=== PATIENT | female | born 1930 | race Caucasian/White ===

== ENCOUNTER 2016-04-26 21:58 | Emergency (ER) | payer MEDICARE, OTHER ==
--- NOTE | 2016-04-26 22:26 | ERPHSYRPT ---
- History of Present Illness Time Seen by Provider: 04/26/16 22:10 Source: patient Exam Limitations: no limitations Patient Subjective Stated Complaint: pt states for since sunday she has been having chest pain and fullness in the lt side of her chest radiating to lt shoulder and arm Triage Nursing Assessment: pt alert and oriented. answers questions approp. pt ambulated from wheelchair to stretcher, steady gait noted. respirations nonlabored. no sob noted while pt lying in bed. lungs cta. +2 edema noted to bilat lower ext. pt states is unchanged from her useal. Physician History: FOR THE PAST 4 DAYS PT HAS HAD CONSTANT CHEST AND LEFT ARM FULLNESS WITH DYSPNEA ON EXERTION; DENIES NAUSEA, VOMITING, DIAPHORESIS, CHEST PAIN, FEVER, CHILLS, ABDOMINAL PAIN. Allergies/Adverse Reactions: Penicillins Allergy (Severe, Verified 04/26/16 22:22) chest pain, sob, tongue swelling cortisone [Cortisone] Allergy (Mild, Verified 04/26/16 22:22) aggrivates ulcer promethazine HCl [From Phenergan] Allergy (Mild, Verified 04/26/16 22:22) hives, itching Home Medications: Aspirin 81 mg PO DAILY 08/11/11 [History] Diltiazem HCl 180 mg [Cardizem CD 180 MG] 180 mg PO DAILY 08/11/11 [History] Furosemide 1 tab PO DAILY 08/11/11 [History] Levothyroxine Sodium 75 Mcg [Synthroid 75 Mcg] 75 mcg PO DAILY 08/11/11 [ History] Multivitamin with Minerals [Multivitamins with Minerals] 1 tab PO UD 08/11/11 [ History] [place]-3 Fatty Acids/Fish Oil [Fish Oil 1,000 mg Capsule] 1 tab PO UD 08/11/11 [History] PANTOPRAZOLE 40 mg Tablet [Protonix 40MG Tablet] 40 mg PO DAILY 08/11/11 [ History] Potassium Chloride 10 Meq Tab* [Klor Con 10MEQ] 10 meq PO DAILY 08/11/11 [ History] Hx Influenza Vaccination/Date Given: Yes Hx Pneumococcal Vaccination/Date Given: Yes (2007) - Review of Systems Constitutional: No Fever Ears, Nose, & Throat: No Ear Pain, No Throat Pain Respiratory: Dyspnea on Exertion (BUSBY) Cardiac: Other (CHEST FULLNESS) Abdominal/Gastrointestinal: No Abdominal Pain, No Nausea, No Vomiting, No Diarrhea Neurological: No Headache Endocrine: No Excessive Sweating All Other Systems: Reviewed and Negative - Past Medical History Pertinent Past Medical History: Yes Neurological History: Peripheral Neuropathy, Stroke, TIA ENT History: No Pertinent History Cardiac History: Angina, Arrhythmia, Hypertension, Other Respiratory History: No Pertinent History Endocrine Medical History: Hypothyroidism Musculoskeletal History: No Pertinent History GI Medical History: Colitis, Colorectal Cancer, Diverticulitis, GERD, GI Bleed, Hemorrhoids History: No Pertinent History Psycho-Social History: No Pertinent History Female Reproductive Disorders: No Pertinent History Other Medical History: leaky heart valve - Past Surgical History Past Surgical History: Yes Neuro Surgical History: No Pertinent History Cardiac: Vascular Surgery Respiratory: No Pertinent History Gastrointestinal: Colon Resection Genitourinary: No Pertinent History Musculoskeletal: Orthopedic Surgery Female Surgical History: Hysterectomy, Other Other Surgical History: rt hand surgery,tubal pregnacy, pt unsure about vascular surgery? - Social History Smoking Status: Never smoker Exposure to second hand smoke: No Drug Use: none Patient Lives Alone: No - Female History Hx Last Menstrual Period: post - Nursing Vital Signs Nursing Vital Signs: Initial Vital Signs Temperature 97.4 F Temperature Source Oral Pulse Rate [] 71 Pulse Rate 59 Respiratory Rate 13 Blood Pressure [] 152/74 Pain Intensity 3 - Physical Exam General Appearance: no apparent distress, alert Eye Exam: PERRL/EOMI Ears, Nose, Throat Exam: TMs normal, pharynx normal, moist mucous membranes Neck Exam: normal inspection Respiratory Exam: lungs clear Cardiovascular Exam: normal heart sounds Gastrointestinal/Abdomen Exam: soft, normal bowel sounds Back Exam: normal range of motion Extremity Exam: normal inspection, No pedal edema Neurologic Exam: alert, cooperative Skin Exam: warm, dry SpO2 Interpretation: normal SpO2: 98 Oxygen Delivery: Room Air - Course Nursing assessment & vital signs reviewed: Yes EKG Interpreted by Me: RATE (74), Sinus Rhythm, NORMAL AXIS, NORMAL QRS - Radiology Exams Chest X-ray Interpretation: Interpreted by me, No Pneumonia Ordered Tests: Active Orders 24 hr Category Date Time Status Photographic Process Attendant STAT Care 04/26/16 22:18 Active EKG-ER Only STAT Care 04/26/16 22:18 Active IV Insertion STAT Care 04/26/16 22:18 Active Oxygen-ED Only NASAL CANNULA 2 lpm Care 04/26/16 22:18 Active CHEST 1 VIEW (PORTABLE) Stat Exams 04/26/16 22:19 Taken AMYLASE Stat Lab 04/26/16 22:00 Completed CBC W DIFF Stat Lab 04/26/16 22:00 Completed CMP Stat Lab 04/26/16 22:00 Completed LIPASE Stat Lab 04/26/16 22:00 Completed MAGNESIUM Stat Lab 04/26/16 22:00 Completed NT PRO BNP Stat Lab 04/26/16 22:00 Completed PROTIME WITH INR Stat Lab 04/26/16 22:00 Completed PTT Stat Lab 04/26/16 22:00 Completed TROPONIN Q3H Lab 04/26/16 22:00 Completed TROPONIN Q3H Lab 04/27/16 01:30 Ordered TROPONIN Q3H Lab 04/27/16 04:30 Ordered TROPONIN Q3H Lab 04/27/16 07:30 Ordered TROPONIN Q3H Lab 04/27/16 10:30 Ordered UA W/ MICROSCOPIC Stat Lab 04/26/16 23:09 Completed Medication Summary Generic Name Dose Route Start Last Admin Trade Name Freq PRN Reason Stop Dose Admin Magnesium Oxide 400 mg 04/27/16 10:00 Mag-Ox 400 PO 05/27/16 09:59 BID ZAHIDA Potassium Chloride 40 meq 04/27/16 10:00 Potassium Chl 40 Meq/30 Ml Oral Solution PO 05/27/16 09:59 DAILY ZAHIDA Lab/Rad Data: Laboratory Result Diagrams 04/26/16 22:00 04/26/16 22:00 Laboratory Results 04/26/16 04/26/16 04/26/16 Range/Units 23:09 22:00 22:00 WBC (4.0-10.5) K/mm3 RBC (4.1-5.4) M/mm3 Hgb (12.0-16.0) gm/dl Hct (35-47) % MCV (78-100) fl MCH (26-32) pg MCHC (32-36) g/dl RDW (11.5-14.0) % Plt Count (150-450) K/mm3 MPV (6-9.5) fl Gran % (36.0-66.0) % Lymphocytes % (24.0-44.0) % Monocytes % (0.0-12.0) % Eosinophils % (0.00-5.0) % Basophils % (0.0-0.4) % Basophils # (0-0.4) INR 0.97 (0.8-3.0) PTT 32.8 (25.3-37.0) SECONDS Sodium (136-145) mEq/L Potassium (3.5-5.1) mEq/L Chloride (98-107) mEq/L Carbon Dioxide (21-32) mEq/L Anion Gap (5-15) MEQ/L BUN (9-20) mg/dL Creatinine (0.55-1.30) mg/dl Estimated GFR ML/MIN Glucose (70-110) MG/DL Calcium (8.5-10.1) mg/dL Magnesium (1.8-2.4) mg/dL Total Bilirubin (0.2-1.0) mg/dL AST (15-37) U/L ALT (12-78) U/L Alkaline Phosphatase (46-116) U/L Troponin I < 0.017 (0.000-0.056) ng/ml NT-Pro-B Natriuret Pep (0-450) pg/ml Serum Total Protein (6.4-8.2) gm/dL Albumin (3.4-5.0) g/dL Amylase (25-115) U/L Lipase (73-393) U/L Ur Collection Type CLEAN CATCH Urine Color YELLOW (YELLOW) Urine Appearance CLEAR (CLEAR) Urine pH 5.5 (5-6) Ur Specific [place] <=1.005 (1.005-1.025) Urine Protein NEGATIVE (Negative) Urine Glucose (UA) NEGATIVE (NEGATIVE) mg/dL Urine Ketones NEGATIVE (NEGATIVE) Urine Nitrite NEGATIVE (NEGATIVE) Urine Bilirubin NEGATIVE (NEGATIVE) Urine Urobilinogen 0.2 (0-1) mg/dL Urine WBC (Auto) SMALL (NEGATIVE) Urine RBC (Auto) NEGATIVE (0-5) Gabriele/ul Urine Microscopic RBC 0-2 (0-2) /HPF Urine Microscopic WBC 2-5 (0-5) /HPF Ur Epithelial Cells RARE (FEW) /HPF Urine Bacteria RARE (NEGATIVE) /HPF Specimen Received 04/26/16 2310 04/26/16 04/26/16 Range/Units 22:00 22:00 WBC 7.5 (4.0-10.5) K/mm3 RBC 4.60 (4.1-5.4) M/mm3 Hgb 13.3 (12.0-16.0) gm/dl Hct 40.9 (35-47) % MCV 88.9 (78-100) fl MCH 28.9 (26-32) pg MCHC 32.5 (32-36) g/dl RDW 13.8 (11.5-14.0) % Plt Count 368 (150-450) K/mm3 MPV 9.1 (6-9.5) fl Gran % 42.8 (36.0-66.0) % Lymphocytes % 46.0 H (24.0-44.0) % Monocytes % 8.7 (0.0-12.0) % Eosinophils % 2.0 (0.00-5.0) % Basophils % 0.5 (0.0-0.4) % Basophils # 0.04 (0-0.4) INR (0.8-3.0) PTT (25.3-37.0) SECONDS Sodium 140 (136-145) mEq/L Potassium 3.3 L (3.5-5.1) mEq/L Chloride 103 (98-107) mEq/L Carbon Dioxide 31.8 (21-32) mEq/L Anion Gap 8.6 (5-15) MEQ/L BUN 17 (9-20) mg/dL Creatinine 0.88 (0.55-1.30) mg/dl Estimated GFR > 60 ML/MIN Glucose 97 (70-110) MG/DL Calcium 10.0 (8.5-10.1) mg/dL Magnesium 1.7 L (1.8-2.4) mg/dL Total Bilirubin 0.3 (0.2-1.0) mg/dL AST 16 (15-37) U/L ALT 14 (12-78) U/L Alkaline Phosphatase 113 (46-116) U/L Troponin I (0.000-0.056) ng/ml NT-Pro-B Natriuret Pep 152 (0-450) pg/ml Serum Total Protein 7.0 (6.4-8.2) gm/dL Albumin 3.4 (3.4-5.0) g/dL Amylase 43 (25-115) U/L Lipase 183 (73-393) U/L Ur Collection Type Urine Color (YELLOW) Urine Appearance (CLEAR) Urine pH (5-6) Ur Specific [place] (1.005-1.025) Urine Protein (Negative) Urine Glucose (UA) (NEGATIVE) mg/dL Urine Ketones (NEGATIVE) Urine Nitrite (NEGATIVE) Urine Bilirubin (NEGATIVE) Urine Urobilinogen (0-1) mg/dL Urine WBC (Auto) (NEGATIVE) Urine RBC (Auto) (0-5) Gabriele/ul Urine Microscopic RBC (0-2) /HPF Urine Microscopic WBC (0-5) /HPF Ur Epithelial Cells (FEW) /HPF Urine Bacteria (NEGATIVE) /HPF Specimen Received - Departure Time of Disposition: 23:23 Departure Disposition: Home Clinical Impression: BUSBY, HYPOKALEMIA, HYPOMAGNESEMIA Condition: Fair Critical Care Time: No Referrals: CALEB HAYNES [Primary Care Provider] - Instructions: Shortness of Breath Additional Instructions: FOLLOW UP WITH PRIVATE DOCTOR TOMORROW.
[2016-04-26 22:29] LABS: BASOPHIL % 0.5 % (0.0-0.4); Granulocytes % 42.8 % (36.0-66.0); Mean Cell Volume 88.9 fl (78-100); Mean Corpuscular Hemoglobin 28.9 pg (26-32); Mean Platelet Volume 9.1 fl (6-9.5); Monocytes % 8.7 % (0.0-12.0); Platelet Count 368 K/mm3 (150-450); Red Cell Distribution Width 13.8 % (11.5-14.0); White Blood Count 7.5 K/mm3 (4.0-10.5)
[2016-04-26 22:49] LABS: INR 0.97 (0.8-3.0); PROTIME 10.9 SECONDS (9.95-12.35)
[2016-04-26 22:52] LABS: PTT 32.8 SECONDS (25.3-37.0)
[2016-04-26 23:01] LABS: ALBUMIN 3.4 g/dL (3.4-5.0); ALKALINE PHOSPHATASE 113 U/L (46-116); ANION GAP 8.6 MEQ/L (5-15); BILIRUBIN,TOTAL 0.3 mg/dL (0.2-1.0); BLOOD UREA NITROGEN 17 mg/dL (9-20); CHLORIDE 103 mEq/L (98-107); Carbon Dioxide 31.8 mEq/L (21-32); Glucose 97 MG/DL (70-110); LIPASE 183 U/L (73-393); MAGNESIUM 1.7 mg/dL (1.8-2.4); Potassium 3.3 mEq/L (3.5-5.1); SGOT/AST 16 U/L (15-37); SGPT/ALT 14 U/L (12-78); SODIUM 140 mEq/L (136-145)
[2016-04-26 23:13] VITALS: O2SAT 98
[2016-04-26 23:21] LABS: Collection Type CLEAN CATCH
[2016-04-26 23:22] LABS: Bacteria RARE /HPF (NEGATIVE); COMPLETE URINE MICROSCOPIC? YES; Epithelial Cells RARE /HPF (FEW); Ph 5.5 (5-6)
[2016-04-26] MEDS ORDERED: MAG-OX 400 ONE (23:25)
[2016-04-26] MEDS ORDERED: POTASSIUM CHL 40 MEQ/30 ML ORAL SOLUTION ONE (23:25)
[2016-04-27 00:39] VITALS: BP 156/102; PULSE 78
--- NOTE | 2016-04-27 09:10 | XRAY ---
Indication: Chest congestion. Comparison: September 19, 2012. Portable chest slightly less inflated today again with left base fibrosis/scarring. Remaining lungs clear. Heart is not enlarged. Vascularity normal. Bony thorax intact again with mild osteopenia, degenerative changes, and double curvature scoliosis. Impression: Nonacute chest again with chronic features.
[2016-04-27] MEDS ORDERED: MAG-OX 400 PO SCH (10:00)
[2016-04-27] MEDS ORDERED: POTASSIUM CHL 40 MEQ/30 ML ORAL SOLUTION PO SCH (10:00)
== END 2016-04-27 00:40 | disposition home or self-care (01) ==
LOC: ED 21:58
DX: R06.00 Dyspnea, unspecified (principal); E87.6 Hypokalemia; E83.42 Hypomagnesemia; R07.89 Other chest pain
CPT/HCPCS: 93041; 99285; 36000; 93005; 82150; 81000; 85610; 85730; 36415; 83690; 83880; 83735; 85025; 80053; 84484; 71010; A9270; 99283; 99284

== ENCOUNTER 2016-04-28 11:30 | Observation (INO) | payer MEDICARE, OTHER ==
[2016-04-28] MEDS ORDERED: Pepcid 20 MG VIAL IV ONE ×2 (11:43→12:02)
[2016-04-28] MEDS ORDERED: NITRO-BID 2% UD PACKETS TOP ONE (11:43)
[2016-04-28] MEDS ORDERED: BABY ASPIRIN 81 MG CHEW PO ONE (11:43)
--- NOTE | 2016-04-28 11:49 | ERPHSYRPT ---
- History of Present Illness Time Seen by Provider: 04/28/16 11:36 Historian: patient, family Patient Subjective Stated Complaint: PT STATES SHE WAS RECENLTY HERE ON SUNDAY STATES THAT HER POTASSIUM AND MAGNESIUM WERE LOW STATES THAT. SHE WAS HAVING LEFT ARM PAIN THEN STATES THAT SHE IS HAVING LEFT SIDE CHEST PAIN RADIATES INTO HER BACK STATES SHE DOES GET SOB WHEN SHE WALKS STATES THAT SHE DID TAKE A NITRO AND THE PAIN "LET UP" STATES STERILIZER MACHINE OPERATOR LUZ MARIA Triage Nursing Assessment: PT ALERT WARM AND DRY RESP EASY NON LABORED PT AMBULATED TO ROOM WITHOUT DIFFICULTY. Physician History: CC: chest pain Hx: 85 y/o patient with chest pain radiating around to her back. Was off and on , now constant. Started last week. Now worse. She has BUSBY. She was in ER this week and has low K. She has no hx of heart disease, but had prior stroke. She took a NTG at home with some brief improvement. She formerly saw Dr Hassan but was planning to see Dr Daryl Cha closer to home. No prior plate and frame filter operator, but has made appt with Dr Restrepo. Pain is squeezing and pressure. Timing/Duration: week(s) (1) Severity of Pain-Max: moderate Severity of Pain-Current: moderate Aspirin Treatment Today: 81 mg x 2, provided by ED Allergies/Adverse Reactions: Penicillins Allergy (Severe, Verified 04/26/16 22:22) chest pain, sob, tongue swelling cortisone [Cortisone] Allergy (Mild, Verified 04/26/16 22:22) aggrivates ulcer promethazine HCl [From Phenergan] Allergy (Mild, Verified 04/26/16 22:22) hives, itching Home Medications: Aspirin 81 mg PO DAILY 08/11/11 [History] Diltiazem HCl 180 mg [Cardizem CD 180 MG] 180 mg PO DAILY 08/11/11 [History] Furosemide 1 tab PO DAILY 08/11/11 [History] Levothyroxine Sodium 75 Mcg [Synthroid 75 Mcg] 75 mcg PO DAILY 08/11/11 [ History] Multivitamin with Minerals [Multivitamins with Minerals] 1 tab PO UD 08/11/11 [ History] [place]-3 Fatty Acids/Fish Oil [Fish Oil 1,000 mg Capsule] 1 tab PO UD 08/11/11 [History] PANTOPRAZOLE 40 mg Tablet [Protonix 40MG Tablet] 40 mg PO DAILY 08/11/11 [ History] Potassium Chloride 10 Meq Tab* [Klor Con 10MEQ] 10 meq PO DAILY 08/11/11 [ History] Hx Tetanus, Diphtheria Vaccination/Date Given: No Hx Influenza Vaccination/Date Given: Yes Hx Pneumococcal Vaccination/Date Given: No Immunizations Up to Date: Yes - Review of Systems Constitutional: Malaise, Weakness, No Fever, No Chills Eyes: No Symptoms Ears, Nose, & Throat: No Symptoms Respiratory: Dyspnea on Exertion (BUSBY), No Cough Cardiac: Chest Pain, Edema Abdominal/Gastrointestinal: No Abdominal Pain, No Nausea, No Vomiting, No Diarrhea Genitourinary Symptoms: No Dysuria Musculoskeletal: Back Pain Skin: No Rash Neurological: No Headache All Other Systems: Reviewed and Negative - Past Medical History Pertinent Past Medical History: Yes Neurological History: Peripheral Neuropathy, Stroke, TIA ENT History: No Pertinent History Cardiac History: Angina, Arrhythmia, Hypertension, Other Respiratory History: No Pertinent History Endocrine Medical History: Hypothyroidism Musculoskeletal History: No Pertinent History GI Medical History: Colitis, Colorectal Cancer, Diverticulitis, GERD, GI Bleed, Hemorrhoids History: No Pertinent History Psycho-Social History: No Pertinent History Female Reproductive Disorders: No Pertinent History Other Medical History: leaky heart valve - Past Surgical History Past Surgical History: Yes Neuro Surgical History: No Pertinent History Cardiac: Vascular Surgery Respiratory: No Pertinent History Gastrointestinal: Colon Resection Genitourinary: No Pertinent History Musculoskeletal: Orthopedic Surgery Female Surgical History: Hysterectomy, Other Other Surgical History: rt hand surgery,tubal pregnacy, pt unsure about vascular surgery? 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) - Female History Hx Last Menstrual Period: N/A - Nursing Vital Signs Temperature: 97.7 F Temperature Source: Oral Pulse Rate: 63 Respiratory Rate: 18 Pain Intensity: 5 - Physical Exam General Appearance: alert, other (pleasant lady) Eye Exam: PERRL/EOMI Ears, Nose, Throat Exam: normal ENT inspection, moist mucous membranes Neck Exam: normal inspection, non-tender, supple Respiratory Exam: normal breath sounds, lungs clear Cardiovascular Exam: regular rate/rhythm, edema Gastrointestinal/Abdomen Exam: soft, No tenderness, No distention, No mass, No guarding Back Exam: normal inspection, normal range of motion Extremity Exam: normal inspection, normal range of motion Neurologic Exam: alert, oriented x 3, cooperative, sensation nml, No motor deficits Skin Exam: warm, dry, No rash SpO2 Interpretation: normal SpO2: 99 Oxygen Delivery: Room Air - Course Nursing assessment & vital signs reviewed: Yes EKG Interpreted by Me: RATE (69), Sinus Rhythm, NORMAL AXIS, NORMAL INTERVALS ( QTc 415), NORMAL QRS, NORMAL ST-T - Radiology Exams cxr X-ray Interpretation: Discussed w/ radiologist, Negative Ordered Tests: Active Orders 24 hr Category Date Time Status Embossing Press Operator STAT Care 04/28/16 11:43 Active EKG-ER Only STAT Care 04/28/16 11:43 Active IV Insertion STAT Care 04/28/16 11:43 Active Pulse Oximetry (ED) STAT Care 04/28/16 11:43 Active CHEST 1 VIEW (PORTABLE) Stat Exams 04/28/16 11:44 Completed CBC W DIFF Stat Lab 04/28/16 11:55 Completed CMP Stat Lab 04/28/16 11:55 Completed MAGNESIUM Stat Lab 04/28/16 11:55 Completed NT PRO BNP Stat Lab 04/28/16 11:55 Completed PROTIME WITH INR Stat Lab 04/28/16 11:55 Completed PTT Stat Lab 04/28/16 11:55 Completed TROPONIN Q3H Lab 04/28/16 14:45 Ordered TROPONIN Q3H Lab 04/28/16 17:45 Ordered TROPONIN Q3H Lab 04/28/16 20:45 Ordered TROPONIN Q3H Lab 04/28/16 23:45 Ordered TROPONIN Stat Lab 04/28/16 11:55 Completed Medication Summary Discontinued Medications Generic Name Dose Route Start Last Admin Trade Name Freq PRN Reason Stop Dose Admin Aspirin 162 mg 04/28/16 11:43 04/28/16 12:07 Baby Aspirin 81 Mg Chew PO 04/28/16 11:44 162 mg STAT ONE Administration Aspirin Confirm 04/28/16 12:01 Baby Aspirin 81 Mg Chew Administered 04/28/16 12:02 Dose 162 mg .ROUTE .STK-MED ONE Famotidine 20 mg 04/28/16 11:43 04/28/16 12:08 Pepcid 20 Mg Vial IV 04/28/16 11:44 20 mg STAT ONE Administration Famotidine Confirm 04/28/16 12:02 Pepcid 20 Mg Vial Administered 04/28/16 12:03 Dose 20 mg IV .STK-MED ONE Nitroglycerin 1 gm 04/28/16 11:43 04/28/16 12:07 Nitro-Bid 2% Ud Packets TOP 04/28/16 11:44 1 gm STAT ONE Administration Nitroglycerin Confirm 04/28/16 12:02 Nitro-Bid 2% Ud Packets Administered 04/28/16 12:03 Dose 1 gm .ROUTE .STK-MED ONE Lab/Rad Data: Laboratory Result Diagrams 04/28/16 11:55 04/28/16 11:55 Laboratory Results 04/28/16 04/28/16 04/28/16 Range/Units 11:55 11:55 11:55 WBC 7.5 (4.0-10.5) K/mm3 RBC 4.78 (4.1-5.4) M/mm3 Hgb 13.6 (12.0-16.0) gm/dl Hct 42.7 (35-47) % MCV 89.3 (78-100) fl MCH 28.5 (26-32) pg MCHC 31.9 L (32-36) g/dl RDW 14.0 (11.5-14.0) % Plt Count 372 (150-450) K/mm3 MPV 9.2 (6-9.5) fl Gran % 64.7 (36.0-66.0) % Lymphocytes % 26.5 (24.0-44.0) % Monocytes % 6.8 (0.0-12.0) % Eosinophils % 1.3 (0.00-5.0) % Basophils % 0.7 (0.0-0.4) % Basophils # 0.05 (0-0.4) INR 0.99 (0.8-3.0) PTT 29.6 (25.3-37.0) SECONDS Sodium 140 (136-145) mEq/L Potassium 4.1 (3.5-5.1) mEq/L Chloride 103 (98-107) mEq/L Carbon Dioxide 27.9 (21-32) mEq/L Anion Gap 12.8 (5-15) MEQ/L BUN 14 (9-20) mg/dL Creatinine 0.75 (0.55-1.30) mg/dl Estimated GFR > 60 ML/MIN Glucose 98 (70-110) MG/DL Calcium 9.9 (8.5-10.1) mg/dL Magnesium 1.9 (1.8-2.4) mg/dL Total Bilirubin 0.3 (0.2-1.0) mg/dL AST 20 (15-37) U/L ALT 17 (12-78) U/L Alkaline Phosphatase 110 (46-116) U/L Troponin I < 0.017 (0.000-0.056) ng/ml NT-Pro-B Natriuret Pep 179 (0-450) pg/ml Serum Total Protein 7.3 (6.4-8.2) gm/dL Albumin 4.0 (3.4-5.0) g/dL - Progress Progress Note: 04/28/16 13:46 Pain improved with NTG paste. She requests Dr Restrepo and Dr Cha. Called Dr Restrepo who advised obs here for rule out CT. Called Dr Daryl Cha who agrees. Will see patient in: hospital (observation) Counseled pt/family regarding: lab results, diagnosis, need for follow-up, rad results - Departure Time of Disposition: 13:47 Departure Disposition: Home Clinical Impression: Chest pain, rule out acute myocardial infarction Condition: Fair Critical Care Time: No Referrals: FERNANDA CHA [Primary Care Provider] -
[2016-04-28] MEDS ORDERED: BABY ASPIRIN 81 MG CHEW ONE (12:01)
[2016-04-28] MEDS ORDERED: NITRO-BID 2% UD PACKETS ONE (12:02)
[2016-04-28 12:16] LABS: BASOPHIL % 0.7 % (0.0-0.4); Eosinophil % 1.3 % (0.00-5.0); Granulocytes % 64.7 % (36.0-66.0); Lymphocytes % 26.5 % (24.0-44.0); Mean Cell Volume 89.3 fl (78-100); Mean Corpuscular Hemoglobin 28.5 pg (26-32); Mean Platelet Volume 9.2 fl (6-9.5); Monocytes % 6.8 % (0.0-12.0); Platelet Count 372 K/mm3 (150-450); Red Blood Count 4.78 M/mm3 (4.1-5.4); White Blood Count 7.5 K/mm3 (4.0-10.5)
--- NOTE | 2016-04-28 12:17 | XRAY ---
Indication: Chest and back pain. Short of breath. Comparison: April 26, 2016. Portable chest clear today. Heart and mediastinal structures within normal limits. No new/acute findings. Comparison: Again nonacute chest.
[2016-04-28 12:18] LABS: INR 0.99 (0.8-3.0); PROTIME 11.1 SECONDS (9.95-12.35)
[2016-04-28 12:21] LABS: PTT 29.6 SECONDS (25.3-37.0)
[2016-04-28 12:50] LABS: ALKALINE PHOSPHATASE 110 U/L (46-116); ANION GAP 12.8 MEQ/L (5-15); BILIRUBIN,TOTAL 0.3 mg/dL (0.2-1.0); BLOOD UREA NITROGEN 14 mg/dL (9-20); CHLORIDE 103 mEq/L (98-107); Carbon Dioxide 27.9 mEq/L (21-32); Glucose 98 MG/DL (70-110); MAGNESIUM 1.9 mg/dL (1.8-2.4); Potassium 4.1 mEq/L (3.5-5.1); SGOT/AST 20 U/L (15-37); SGPT/ALT 17 U/L (12-78); SODIUM 140 mEq/L (136-145); Total Protein 7.3 gm/dL (6.4-8.2)
[2016-04-28 12:51] LABS: TROPONIN < 0.017 ng/ml (0.000-0.056)
[2016-04-28] MEDS ORDERED: MILK OF MAGNESIA 30 ML PO PRN (13:59)
[2016-04-28] MEDS ORDERED: Zofran 4 MG/2 ML VIAL IV PRN (13:59)
[2016-04-28] MEDS ORDERED: MAALOX ES 30 ML UNIT DOSE PO PRN (13:59)
[2016-04-28] MEDS ORDERED: Senokot-S Tablet PO PRN (13:59)
[2016-04-28] MEDS ORDERED: TYLENOL 325 MG PO PRN (13:59)
[2016-04-28] MEDS ORDERED: Sodium Chloride 0.9% 500 ML 500 ML IV SCH (14:00)
[2016-04-28] MEDS: NITRO-BID 2% UD PACKETS TOP SCH ×2 (14:14→21:50)
--- NOTE | 2016-04-28 18:35 | PCM.HP ---
History of Present Illness - Chief Complaint Chief Complaint: Chest Pain r/o MS Date: 04/28/16 History of Present Illness: is a 85 year old female. she has history of stroke, htn, chronic peripheral edema, and colon cancer in remission, she has been having progressively increasing shortness of breath on exertion for the last 5 months adn the last several months has been battling cough congestion and sinus drainage issues. For the last 1 week she has developed chest tightness and pain that radiates from the upper abdomen to the chest and lower back and into the left arm at times worse with exertion. She did get some nitro from her PCP and it seemed to help as well. She has history of hiatle hernia and early satiety but no dysphasia. She has some nausea today but no vomiting. The pain is not associated or relieved by eating. She has chronic intermittent constipation and diarrhea with no recent changing in this. SHe was seeing Dr. Yen Chopra but it was several years ago and does not recall any cardic disease then and did have testing but never had anything like this pain before. - Review of Systems Constitutional: No Fever, No Chills Eyes: No Symptoms Ears, Nose, & Throat: No Symptoms Respiratory: Cough, Short Of Breath Cardiac: Chest Pain, Edema, No Syncope Abdominal/Gastrointestinal: No Abdominal Pain, No Nausea, No Vomiting, No Diarrhea Genitourinary Symptoms: No Dysuria Musculoskeletal: No Back Pain, No Neck Pain Skin: No Rash Neurological: No Dizziness, No Focal Weakness, No Sensory Changes Psychological: No Symptoms Endocrine: No Symptoms Hematologic/Lymphatic: No Symptoms Immunological/Allergic: No Symptoms Medications & Allergies Home Medications: Home Medication List Aspirin 81 mg PO DAILY 08/11/11 [History Confirmed 04/28/16] Diltiazem HCl 180 mg [Cardizem CD 180 MG] 180 mg PO HS 08/11/11 [History Confirmed 04/28/16] Furosemide 1 tab PO DAILY 08/11/11 [History Confirmed 04/28/16] Levothyroxine Sodium 75 Mcg [Synthroid 75 Mcg] 75 mcg PO DAILY 08/11/11 [ History Confirmed 04/28/16] Multivitamin with Minerals [Multivitamins with Minerals] 1 tab PO DAILY [History Confirmed 04/28/16] [place]-3 Fatty Acids/Fish Oil [Fish Oil 1,000 mg Capsule] 1 tab PO HS 08/11/11 [History Confirmed 04/28/16] PANTOPRAZOLE 40 mg Tablet [Protonix 40MG Tablet] 40 mg PO DAILY 08/11/11 [ History Confirmed 04/28/16] Potassium Chloride 10 Meq Tab* [Klor Con 10MEQ] 10 meq PO DAILY 08/11/11 [ History Confirmed 04/28/16] Allergies/Adverse Reactions: Allergies Allergy/AdvReac Type Severity Reaction Status Date / Time Penicillins Allergy Severe chest Verified 04/28/16 14:15 pain, sob, tongue swelling cortisone [Cortisone] Allergy Mild aggrivates Verified 04/28/16 14:15 ulcer promethazine HCl Allergy Mild hives, Verified 04/28/16 14:15 [From Phenergan] itching - Past Medical History Past Medical History: Yes Neurological History: Peripheral Neuropathy, Stroke, TIA ENT History: No Pertinent History Cardiac History: Angina, Arrhythmia, Hypertension, Other Respiratory History: No Pertinent History Endocrine Medical History: Hypothyroidism Musculoskelatal History: No Pertinent History GI Medical History: Colitis, Colorectal Cancer, Diverticulitis, GERD, GI Bleed, Hemorrhoids History: No Pertinent History Pyscho-Social History: No Pertinent History Reproductive Disorders: No Pertinent History Comment: leaky heart valve - Female History Hx Last Menstrual Period: N/A Are you now?: No - Past Surgical History Past Surgical History: Yes Neuro Surgical History: No Pertinent History Cardiac History: Vascular Surgery Respiratory Surgery: No Pertinent History GI Surgical History: Colon Resection Genitourinary Surgical Hx: No Pertinent History Musculskeletal Surgical Hx: Orthopedic Surgery Female Surgical History: Hysterectomy, Other Other Surgical History: rt hand surgery,tubal pregnacy, pt unsure about vascular surgery? - Social History Smoking Status: Never smoker Exposure to second hand smoke: No Alcohol: None Drug Use: none - Physical Exam Vital Signs: Vital Signs - 24 hr Temp Pulse Resp BP Pulse Ox 04/28/16 17:32 97.2 F 85 20 143/65 96 04/28/16 14:40 98 F 68 20 190/79 95 04/28/16 14:04 98 F 68 20 190/79 98 04/28/16 13:48 59 L 161/62 95 04/28/16 13:47 97.7 F 63 18 99 04/28/16 12:11 60 16 157/67 96 04/28/16 11:31 97.7 F 63 18 184/72 99 General Appearance: no apparent distress Neurologic Exam: alert, oriented x 3, cooperative Eye Exam: No scleral icterus, No pale conjunctivae Ears, Nose, Throat Exam: moist mucous membranes Neck Exam: normal inspection, non-tender, supple, No JVD Respiratory Exam: other (minimal bibasilar rales), No rhonchi, No wheezing Cardiovascular Exam: regular rate/rhythm, murmur (systolic ejection murmur 2/6) Gastrointestinal/Abdomen Exam: soft, normal bowel sounds, tenderness ( epigastric and right upper quadrant), No hepatomegaly Back Exam: normal inspection, No CVA tenderness Extremity Exam: normal inspection, pedal edema (bilateral), No calf tenderness, No inflammation Skin Exam: warm, dry, No rash Results - Labs Lab/Micro Results: Lab Results-Last 24 Hours 04/28/16 04/28/16 Range/Units 15:00 17:45 Troponin I < 0.017 < 0.017 (0.000-0.056) ng/ml - Other Procedures and Tests Respiratory Therapy 04/28/16 19:30 EKG ONCE 04/29/16 06:00 EKG ONCE 04/30/16 05:00 EKG ONCE 05/01/16 05:00 EKG ONCE Assessment/Plan (1) Chest pain, rule out acute myocardial infarction Current Visit: Yes Status: Acute Assessment & Plan: very typical pains for anginal pain thus far troponin not detected and the bnp normal. She does have relief with the nitro.She has had aspirin. Will add D dimer she has no tachycardia, tachypnea, hypoxia or sob now so if negative will hold off the CT chest for now She has follow up with Dr. Restrepo will do the rule out MS tonight and serial exam to monitor symptom progression The ekg is normal. continue tele Code(s): R07.9 - CHEST PAIN, UNSPECIFIED (2) Essential hypertension Current Visit: Yes Status: Acute Code(s): I10 - ESSENTIAL (PRIMARY) HYPERTENSION (3) Colon cancer Current Visit: Yes Status: Resolved (4) Hypothyroid Current Visit: Yes Status: Chronic Code(s): E03.9 - HYPOTHYROIDISM, UNSPECIFIED (5) Hx of stroke without residual deficits Current Visit: Yes Status: Chronic
[2016-04-28] MEDS: Pepcid 20 MG PO SCH (21:52)
[2016-04-28] MEDS ORDERED: Cardizem CD 180 MG PO SCH (22:00)
[2016-04-28] MEDS ORDERED: FISH OIL 1,000 MG CAPSULE PO SCH (22:00)
[2016-04-29] MEDS: NITRO-BID 2% UD PACKETS TOP SCH (05:14)
[2016-04-29] MEDS: Pepcid 20 MG PO SCH (09:11)
[2016-04-29] MEDS ORDERED: SYNTHROID 75 MCG PO SCH (10:00)
[2016-04-29] MEDS ORDERED: Klor Con 10 MEQ PO SCH (10:00)
[2016-04-29] MEDS ORDERED: Protonix 40MG Tablet PO SCH (10:00)
[2016-04-29] MEDS ORDERED: Lasix 40 MG PO SCH (10:00)
[2016-04-29] MEDS ORDERED: PREVNAR 13 SYRINGE IM ONE (10:00)
[2016-04-29] MEDS ORDERED: Ecotrin 325 MG PO SCH (10:00)
[2016-04-29] MEDS ORDERED: ENOXAPARIN SODIUM SQ SCH (10:00)
[2016-04-29] MEDS ORDERED: NON-FORMULARY ITEM (Aspirin [Aspirin] 81 MG) PO SCH (10:00)
[2016-04-29] MEDS ORDERED: ECOTRIN 81 MG PO SCH (10:00)
--- NOTE | 2016-04-29 10:28 | PCM.DS ---
Discharge Summary Date of Admission: 04/28/16 13:57 Date of Discharge: 04/29/16 Admitting Physician: FERNANDA CHA Primary Care Provider: FERNANDA CHA Allergies Allergies Penicillins Allergy (Severe, Verified 04/28/16 14:15) chest pain, sob, tongue swelling cortisone [Cortisone] Allergy (Mild, Verified 04/28/16 14:15) aggrivates ulcer promethazine HCl [From Phenergan] Allergy (Mild, Verified 04/28/16 14:15) hives, itching Hospital Summary - Hospital Course Hospital Course: Ms. Raymond has been having incresing shortness of breath on exertion for 6 months and over the last week has developed chest pain in the lower chest / upper abdomen bilateral radiating to the back and left arm worse with activity not associated or relieved with food. She was given nitro and that seems to help it. She has not had recent cardiac evaluation but was already set up to see Dr. Restrepo for this problem. She was given nitro in the ED and that improved the pain with the nitro past. She had labile hyprtension that improved by morning on her home meds with the nitro as well. She had normal EKG no events on telemetry and a chest CT that was negative for PE or pulmonary process. She had no hypoxia, tachycardia or tachypnea. She was tolerating eating well. By the morning her chest pain was fully resolved and she had no symptoms. Her troponins remained undetectable and the EKG was still normal. We will have close outpatient follow up with Dr. Restrepo and appropriate cardiac testing further arranged. There were gallstones seen on her CT chest but symptoms not typical for this. She is on home PPI as well. She was placed on imdur pending cardiology followup . - Vitals & Intake/Output Vital Signs: Vital Signs Temperature 97.7 F 04/29/16 07:39 Pulse Rate 63 04/29/16 07:39 Respiratory Rate 20 04/29/16 07:39 Blood Pressure 131/63 04/29/16 07:39 O2 Sat by Pulse Oximetry 93 L 04/29/16 07:39 Intake & Output: Intake & Output 04/26/16 04/27/16 04/28/16 04/29/16 11:59 11:59 11:59 11:59 Intake Total 1547 Output Total 900 Balance 647 Weight 63.82 kg - Lab Result Diagrams: 04/28/16 11:55 04/28/16 11:55 Lab Results-Last 24 Hrs: Lab Results-Last 24 Hours 04/28/16 04/28/16 04/28/16 Range/Units 15:00 17:45 20:57 D-Dimer (0.00-0.49) mg/L Troponin I < 0.017 < 0.017 < 0.017 (0.000-0.056) ng/ml Triglycerides (30-200) mg/dL Cholesterol (100-200) mg/dL LDL Cholesterol (5-99) mg/dL HDL Cholesterol (35-60) mg/dL Heart Disease Risk Ratio 04/28/16 04/29/16 04/29/16 Range/Units 23:48 05:00 05:00 D-Dimer 0.502 H* (0.00-0.49) mg/L Troponin I < 0.017 (0.000-0.056) ng/ml Triglycerides 63 (30-200) mg/dL Cholesterol 211 H (100-200) mg/dL LDL Cholesterol 148 H (5-99) mg/dL HDL Cholesterol 75 H (35-60) mg/dL Heart Disease Risk Ratio 2.8 - Radiology Exams Ordered Rad Exams-Entire Visit: Radiology Procedures Category Date Time Status CHEST WITH CONTRAST [CT] Urgent Exams 04/29/16 06:02 Taken - Procedures and Test Procedures and Tests throughout Hospitalization: Therapy Orders & Screens 04/28/16 19:30 EKG ONCE Comment: Diagnosis: Chest Pain r/o HI 04/29/16 06:00 EKG ONCE Comment: Diagnosis: Chest Pain r/o HI 04/30/16 05:00 EKG ONCE Comment: Diagnosis: Chest Pain r/o HI 05/01/16 05:00 EKG ONCE Comment: Diagnosis: Chest Pain r/o HI Discharge Exam General Appearance: no apparent distress, alert Neurologic Exam: alert, oriented x 3, cooperative, normal mood/affect, nml cerebellar function, sensation nml, No motor deficits Skin Exam: normal color, warm, dry Eye Exam: PERRL, EOMI, eyes nml inspection Ears, Nose, Throat Exam: normal ENT inspection, pharynx normal, moist mucous membranes Neck Exam: normal inspection, non-tender, supple, full range of motion Respiratory Exam: normal breath sounds, lungs clear, No respiratory distress Cardiovascular Exam: regular rate/rhythm, normal heart sounds Gastrointestinal/Abdomen Exam: soft, No tenderness, No mass Extremity Exam: normal inspection, normal range of motion Back Exam: normal inspection, normal range of motion, No CVA tenderness, No vertebral tenderness Pelvic Exam: deferred Rectal Exam: deferred Final Diagnosis/Problem List - Final Discharge Diagnosis/Problem (1) Chest pain, rule out acute myocardial infarction Status: Acute (2) Essential hypertension Status: Acute (3) Colon cancer Status: Resolved (4) Hypothyroid Status: Chronic (5) Hx of stroke without residual deficits Status: Chronic - Discharge Discharge Date: 04/29/16 Disposition: Home, Self-Care Condition: Stable Prescriptions: New Isosorbide Mononitrate 60 mg [Imdur 60MG] 60 mg PO DAILY #30 tab Continue Aspirin 81 mg PO DAILY PANTOPRAZOLE 40 mg Tablet [Protonix 40MG Tablet] 40 mg PO DAILY Levothyroxine Sodium 75 Mcg [Synthroid 75 Mcg] 75 mcg PO DAILY Furosemide 1 tab PO DAILY Diltiazem HCl 180 mg [Cardizem CD 180 MG] 180 mg PO HS Potassium Chloride 10 Meq Tab* [Klor Con 10 MEQ] 10 meq PO DAILY Multivitamin with Minerals [Multivitamins with Minerals] 1 tab PO DAILY [place]-3 Fatty Acids/Fish Oil [Fish Oil 1,000 mg Capsule] 1 tab PO HS Instructions: Heart-Healthy Diet, Chest Pain Follow up with: FERNANDA CHA [Primary Care Provider] - Call for Appointment Forms: Discharge Instructions
[2016-04-29 11:50] VITALS: BP 129/61; PULSE 110; O2SAT 94
--- NOTE | 2016-05-01 11:05 | XRAY ---
Indication: Chest and left arm pain. Dyspnea on exertion. Elevated d-dimer. Multiple contiguous axial images obtained through the chest using 80 cc Isovue-370 contrast and PE protocol. Comparison: None There is good opacification of the pulmonary arteries to include the lobar and segmental branches. No filling defect or pulmonary embolus. Heart is not enlarged. Aorta minimally arteriosclerotic without aneurysm/dissection. No pathologic mediastinal/hilar lymphadenopathy. Examination of the lung parenchyma demonstrates mild bilateral dependent atelectasis and minimal left base fibrosis/scarring. No suspicious pulmonary mass, infiltrate, consolidation, or effusion. Bony thorax intact. Limited upper abdomen demonstrates hepatic cysts with cluster of cysts in the peripheral right lobe measuring 4.5 cm. Also tiny gallstones. Impression: 1. Negative for pulmonary embolus. 2. No acute cardiopulmonary abnormalities or pathologic lymphadenopathy. 3. Incidental hepatic cysts and gallstones. CTDI 13.33
== END 2016-04-29 11:00 | disposition home or self-care (01) ==
LOC: ED 11:30 → MED SURG 13:57
PROVIDERS: ADMIT Family Medicine; ATTEND Family Medicine
DX: R07.89 Other chest pain (principal); I10 Essential (primary) hypertension; Z85.038 Personal history of other malignant neoplasm of large intestine; E03.9 Hypothyroidism, unspecified; G62.9 Polyneuropathy, unspecified; K21.9 Gastro-esophageal reflux disease without esophagitis; Z86.73 Personal history of transient ischemic attack (TIA), and cerebral infarction without residual deficits; Z79.899 Other long term (current) drug therapy
CPT/HCPCS: 93268; 93041; 96374; 99285; 99284; 36000; 93005 ×3; 85610; 85730; 36415 ×2; 83721; 83880; 83735; 85379; 85025; 80053; 80061; 84484; 71010; 71260; A9270 ×12; 90670; G0009; G0378; J1650

== ENCOUNTER 2016-10-30 10:20 | Day surgery (SDC) | payer MEDICARE, OTHER ==
--- NOTE | 2016-10-27 12:46 | HP ---
DATE OF SURGERY: 10/30/2016 HISTORY OF PRESENT ILLNESS: The patient is an 86 year-old with history of colon cancer, occasional rectal bleeding. MEDICATIONS: Synthroid, water pill, Lasix, thyroid pill, potassium, baby aspirin and stomach acid pill according to the patient, names of which she did not all know. Aspirin, diltiazem, Furosemide, levothyroxine, multivitamins, omega-3 fatty acid fish oil, pantoprazole, potassium chloride. ALLERGIES: PENICILLILN, CORTISONE. FAMILY HISTORY: No known colon cancer. SOCIAL HISTORY: No smoking or alcohol abuse. REVIEW OF SYSTEMS: Twelve systems reviewed. No chest pain or palpitations. She has some history of thyroid disease and history of colitis and colon cancer, diverticular disease, reflux in the past. Some leaky heart valve, hypertension, neuropathy and transient ischemic attack in the past. Other systems negative or noncontributory as above and per preadmission questionnaire. PHYSICAL EXAMINATION: GENERAL: No acute distress. HEENT: Sclerae nonicteric. NECK: No JVD. CHEST: Equal excursion, nonlabored breathing. CVS: Regular rate and rhythm. ABDOMEN: Soft. No peritoneal signs. EXTREMITIES: No significant edema. NEURO: Alert, moving extremities grossly symmetrically. No gross motor deficits noted. IMPRESSION: History of prior colon cancer status post resection, in need of follow up colonoscopy. I feel she is a candidate. Risks and benefits explained in detail including but not limited to bleeding or infection, small risk of bowel injury or perforation possibly requiring open procedure, small risk of missed or nondiagnosis or incomplete exam possibly requiring barium enema, other studies or procedures, general risk of anesthesia or sedation, risk of bowel prep, postoperative risk of nausea, vomiting or cramping but not limited to. She understands and agrees to the planned procedure and will proceed with outpatient follow up colonoscopy.
[2016-10-30] MEDS ORDERED: DEMEROL 50 MG IV ONE (10:21)
[2016-10-30] MEDS ORDERED: VERSED 5 MG/5 ML IV ONE (10:21)
[2016-10-30] MEDS ORDERED: Sodium Chloride 0.9% 1000 ML 1,000 ML IV SCH (10:45)
[2016-10-30 13:26] VITALS: O2SAT 92
[2016-10-30 13:38] VITALS: BP 119/57; PULSE 75
--- NOTE | 2016-10-31 08:52 | OP ---
SURGERY DATE/TIME: 10/30/2016 1226 PREOPERATIVE DIAGNOSIS: History of colon cancer in need of follow up colonoscopy with some rectal bleeding at times. POSTOPERATIVE DIAGNOSES: 1) Diverticulosis, small internal and external hemorrhoids. 2) Patent ileocolonic anastomosis. No evidence of recurrence. PROCEDURE: Colonoscopy to terminal ileum with retrograde ileoscopy. SURGEON: Dr. Dell Cool. ANESTHESIA: IV sedation IV Demerol and Versed. ESTIMATED BLOOD LOSS: Minimal. INDICATIONS: As noted above. Risks and benefits explained in detail but not limited to and consent was obtained. DESCRIPTION OF PROCEDURE AND FINDINGS: The patient is taken to the operating room on continuous pulse oximetry and blood pressure monitoring. She is incrementally sedated with IV Demerol 50 and IV morphine 2 mg. She was quite wide awake at this time so she was given another 50 and 2. She was made more comfortable. Began the procedure. She had transient saturation drop into the 70's that responded to a little airway and jaw lift, placed on a face mask. She then remained up in the upper 90's. Slowly and carefully the endoscope was passed up through the rectum up through the slightly tortuous sigmoid, descending, transverse colon to the anastomotic area that was widely patent. No evidence of any recurrence. Retrograde ileoscopy was performed. Terminal ileum grossly unremarkable. The scope is then carefully withdrawn. Again anastomosis fine. No evidence of any recurrence. She had a small amount of stool slightly limiting the exam. It was suctioned and irrigated as well as possible but did limit the exam for real small lesions. Otherwise the scope is slowly and carefully withdrawn. There are no signs of any large polyps, masses or obstructing lesions. She had two diverticula. She had some small internal and external hemorrhoids. The scope is withdrawn. There was no immediate complications. Findings discussed with the family out in the waiting area. I will see her back in the office next week to go over the results and determine her follow up endoscopy schedule.
== END 2016-10-30 14:11 | disposition home or self-care (01) ==
LOC: SDC 10:20
PROVIDERS: ATTEND Surgery
PROC: 0DJD8ZZ Inspection of Lower Intestinal Tract, Via Natural or Artificial Opening Endoscopic (ICD-10-PCS; principal; 2016-10-30)
DX: Z85.038 Personal history of other malignant neoplasm of large intestine (principal); K62.5 Hemorrhage of anus and rectum; K57.90 Diverticulosis of intestine, part unspecified, without perforation or abscess without bleeding; K64.4 Residual hemorrhoidal skin tags; K64.8 Other hemorrhoids; E07.9 Disorder of thyroid, unspecified; I38 Endocarditis, valve unspecified; I10 Essential (primary) hypertension; G62.9 Polyneuropathy, unspecified; Z86.73 Personal history of transient ischemic attack (TIA), and cerebral infarction without residual deficits; Z90.49 Acquired absence of other specified parts of digestive tract
CPT/HCPCS: J2175; J2250

== ENCOUNTER 2016-11-29 21:55 | Observation (INO) | payer MEDICARE, OTHER ==
[2016-11-29] MEDS ORDERED: Nitrostat 0.4 MG (ED) SL ONE ×3 (22:23→23:27)
[2016-11-29] MEDS ORDERED: BABY ASPIRIN 81 MG CHEW PO ONE (22:23)
[2016-11-29] MEDS ORDERED: Sodium Chloride 0.9% 1000 ML 1,000 ML IV SCH (22:30)
--- NOTE | 2016-11-29 22:31 | ERPHSYRPT ---
- History of Present Illness Time Seen by Provider: 11/29/16 22:10 Historian: patient Exam Limitations: clinical condition Patient Subjective Stated Complaint: Pt states "For the past few days I have felt off and today, my chest started to hurt and i couldn't catch my breath. The pain went into my left arm and into my back a little. I am also very nauseous." Triage Nursing Assessment: Pt alert and oriented X 3, skin pwd pt ambulates without difficulty, able to speak in full sentences. Pt has clear speech and is resting at ease. Physician History: PATIENT WITH HISTORY OF HYPERTENSION, CVA COMPLAINS OF ANTERIOR CHEST PAINS 1 HOUR PREVIOUS TO ARRIVAL, WITH RADIATION TO LEFT ARM AND BACK ASSOCIATED WITH NAUSEA AND OCCASIONAL DYSPNEA. Timing/Duration: today Activities at Onset: none Quality: sharpness Location: substernal Chest Pain Radiation: neck, back Severity of Pain-Max: severe Severity of Pain-Current: moderate Modifying Factors: Improves With: nothing Associated Symptoms: nausea, shortness of breath Prior Chest Pain/Cardiac Workup: angina, stress test Nitro Today/Relief: provided by ED Aspirin Treatment Today: 325 mg x 1, provided by ED Allergies/Adverse Reactions: Penicillins Allergy (Severe, Verified 10/30/16 10:38) chest pain, sob, tongue swelling cortisone [Cortisone] Allergy (Mild, Verified 10/30/16 10:38) aggrivates ulcer promethazine HCl [From Phenergan] Allergy (Mild, Verified 10/30/16 10:38) hives, itching Home Medications: Diltiazem HCl 180 mg [Cardizem CD 180 MG] 180 mg PO HS 08/11/11 [History] Furosemide 1 tab PO DAILY 08/11/11 [History] Levothyroxine Sodium 75 Mcg [Synthroid 75 Mcg] 75 mcg PO DAILY 08/11/11 [ History] Multivitamin with Minerals [Multivitamins with Minerals] 1 tab PO DAILY [History] [place]-3 Fatty Acids/Fish Oil [Fish Oil 1,000 mg Capsule] 1 tab PO HS [History] PANTOPRAZOLE 40 mg Tablet [Protonix 40MG Tablet] 40 mg PO DAILY 08/11/11 [ History] Potassium Chloride 10 Meq Tab* [Klor Con 10 MEQ] 10 meq PO DAILY 08/11/11 [ History] Mv-Mn/Iron/Folic Acid/Herb 190 [Vitamin D3 Complete Caplet] 1 each PO DIRECTIONS UNKNOWN 10/27/16 [History] Hx Tetanus, Diphtheria Vaccination/Date Given: No Hx Influenza Vaccination/Date Given: Yes Hx Pneumococcal Vaccination/Date Given: Yes Immunizations Up to Date: Yes - Review of Systems Constitutional: No Fever, No Chills Eyes: No Symptoms Ears, Nose, & Throat: No Symptoms Respiratory: No Symptoms, No Cough, No Dyspnea Cardiac: No Symptoms, No Chest Pain, No Edema, No Syncope Abdominal/Gastrointestinal: No Symptoms, No Abdominal Pain, No Nausea, No Vomiting, No Diarrhea Genitourinary Symptoms: No Symptoms, No Dysuria Musculoskeletal: No Symptoms, No Back Pain, No Neck Pain Skin: No Rash Neurological: No Dizziness, No Focal Weakness, No Sensory Changes Psychological: No Symptoms Endocrine: No Symptoms All Other Systems: Reviewed and Negative - Past Medical History Pertinent Past Medical History: Yes Neurological History: Peripheral Neuropathy, Stroke, TIA ENT History: No Pertinent History Cardiac History: Angina, Arrhythmia, Hypertension, Other Respiratory History: No Pertinent History Endocrine Medical History: Hypothyroidism Musculoskeletal History: No Pertinent History GI Medical History: Colitis, Colorectal Cancer, Diverticulitis, GERD, GI Bleed, Hemorrhoids History: No Pertinent History Psycho-Social History: No Pertinent History Female Reproductive Disorders: No Pertinent History Other Medical History: leaky heart valve - Past Surgical History Past Surgical History: Yes Neuro Surgical History: No Pertinent History Cardiac: Vascular Surgery Respiratory: No Pertinent History Gastrointestinal: Colon Resection Genitourinary: No Pertinent History Musculoskeletal: Orthopedic Surgery Female Surgical History: Hysterectomy, Other Other Surgical History: rt hand surgery,tubal pregnacy, pt unsure about vascular surgery? - Social History Smoking Status: Never smoker Exposure to second hand smoke: No Drug Use: none Patient Lives Alone: Yes - Female History Hx Last Menstrual Period: none - Nursing Vital Signs Nursing Vital Signs: Initial Vital Signs Temperature 98.3 F 11/29/16 22:01 Pulse Rate 66 11/29/16 22:01 Respiratory Rate 16 11/29/16 22:01 Blood Pressure 162/57 11/29/16 22:01 O2 Sat by Pulse Oximetry 95 11/29/16 22:01 Pain Scale Pain Intensity 4 - Physical Exam General Appearance: no apparent distress, alert Ears, Nose, Throat Exam: normal ENT inspection, moist mucous membranes Neck Exam: normal inspection, non-tender, supple, full range of motion Respiratory Exam: normal breath sounds, chest tenderness, lungs clear, No respiratory distress Cardiovascular Exam: regular rate/rhythm, normal heart sounds Gastrointestinal/Abdomen Exam: soft, normal bowel sounds (NONTENDER) Back Exam: normal inspection Extremity Exam: normal inspection, normal range of motion, pedal edema ( 1+ PRETIBIAL EDEMA) Neurologic Exam: alert, oriented x 3 Skin Exam: normal color SpO2 Interpretation: normal SpO2: 95 Oxygen Delivery: Room Air - Course Nursing assessment & vital signs reviewed: Yes EKG Interpreted by Me: RATE, Sinus Rhythm, NORMAL AXIS - Radiology Exams Chest X-ray Interpretation: Interpreted by me, Negative, No Pneumothorax Ordered Tests: Active Orders 24 hr Category Date Time Status Bedrest with BRP/BSC TOLERATED Activity 11/30/16 00:38 Ordered Admission/Status Order ROUTINE Care 11/30/16 00:38 Ordered Flame Cutting Machine Operator CONTINUOUS Care 11/30/16 00:38 Ordered Flame Cutting Machine Operator STAT Care 11/29/16 22:23 Active Code Status Order ROUTINE Care 11/30/16 00:38 Ordered EKG-ER Only STAT Care 11/29/16 22:23 Active EKG-ER Only STAT Care 11/30/16 00:03 Active IV Care Q6H Care 11/30/16 00:38 Ordered Implement Chest Pain Pathway ROUTINE Care 11/30/16 00:38 Ordered Oxygen-ED Only NASAL CANNULA 2 lpm Care 11/29/16 22:23 Active Vital Signs .q15mx2,q3omx2,q1hx2,q7mr75t Care 11/30/16 00:38 Ordered Weight,Daily 0600 Care 11/30/16 00:38 Ordered Cardiac Diet Diet 11/30/16 Breakfast Ordered CHEST 1 VIEW (PORTABLE) Stat Exams 11/29/16 22:23 Taken CBC W DIFF Stat Lab 11/29/16 22:30 Completed CMP Stat Lab 11/29/16 22:30 Completed D-DIMER QUANTITATION Stat Lab 11/29/16 22:30 Completed NT PRO BNP Stat Lab 11/29/16 22:30 Completed PROTIME WITH INR Stat Lab 11/29/16 22:30 Completed TROPONIN Q3H Lab 11/29/16 22:30 Completed TROPONIN Q3H Lab 11/30/16 00:45 Ordered TROPONIN Q3H Lab 11/30/16 01:30 Ordered TROPONIN Q3H Lab 11/30/16 03:45 Ordered TROPONIN Q3H Lab 11/30/16 04:30 Ordered TROPONIN Q3H Lab 11/30/16 06:45 Ordered TROPONIN Q3H Lab 11/30/16 07:30 Ordered TROPONIN Q3H Lab 11/30/16 09:45 Ordered TROPONIN Q3H Lab 11/30/16 10:30 Ordered TROPONIN Q3H Lab 11/30/16 12:45 Ordered EKG Q8HX2,QAMX3,PRN RT 11/30/16 00:38 Ordered Oxygen NASAL CANNULA 2 lpm RT 11/30/16 00:44 Ordered Pulse Oximetry CONTINUOUS RT 11/30/16 00:44 Ordered Transfer Order Routine Transfer 11/30/16 Ordered Medication Summary Generic Name Dose Route Start Last Admin Trade Name Freq PRN Reason Stop Dose Admin Sodium Chloride 1,000 mls @ 50 mls/hr 11/29/16 22:30 11/29/16 22:33 Sodium Chloride 0.9% 1000 Ml IV 12/29/16 22:29 50 mls/hr .Q20H ZAHIDA Administration Discontinued Medications Generic Name Dose Route Start Last Admin Trade Name Freq PRN Reason Stop Dose Admin Aspirin 324 mg 11/29/16 22:23 11/29/16 22:33 Baby Aspirin 81 Mg Chew PO 11/29/16 22:24 324 mg STAT ONE Administration Aspirin Confirm 11/29/16 22:32 Baby Aspirin 81 Mg Chew Administered 11/29/16 22:33 Dose 324 mg .ROUTE .STK-MED ONE Morphine Sulfate 2 mg 11/30/16 00:02 11/30/16 00:06 Morphine Sulfate 2 Mg Inj IV 11/30/16 00:03 2 mg STAT ONE Administration Morphine Sulfate Confirm 11/30/16 00:05 Morphine Sulfate 2 Mg Inj Administered 11/30/16 00:06 Dose 2 mg .ROUTE .STK-MED ONE Morphine Sulfate 2 mg 11/30/16 00:16 11/30/16 00:20 Morphine Sulfate 2 Mg Inj IV 11/30/16 00:17 2 mg STAT ONE Administration Morphine Sulfate Confirm 11/30/16 00:20 Morphine Sulfate 2 Mg Inj Administered 11/30/16 00:21 Dose 2 mg .ROUTE .STK-MED ONE Nitroglycerin 0.4 mg 11/29/16 22:23 11/29/16 22:33 Nitrostat 0.4 Mg (Ed) SL 11/29/16 22:24 0.4 mg STAT ONE Administration Nitroglycerin Confirm 11/29/16 22:32 Nitrostat 0.4 Mg (Ed) Administered 11/29/16 22:33 Dose 0.4 mg SL .STK-MED ONE Nitroglycerin 0.4 mg 11/29/16 23:27 11/29/16 23:30 Nitrostat 0.4 Mg (Ed) SL 11/29/16 23:28 0.4 mg STAT ONE Administration Nitroglycerin 1 gm 11/29/16 23:32 11/29/16 23:41 Nitro-Bid 2% Ud Packets TOP 11/29/16 23:33 1 gm STAT ONE Administration Nitroglycerin Confirm 11/29/16 23:41 Nitro-Bid 2% Ud Packets Administered 11/29/16 23:42 Dose 1 gm .ROUTE .STK-MED ONE Lab/Rad Data: Laboratory Result Diagrams 11/29/16 22:30 11/29/16 22:30 Laboratory Results 11/29/16 11/29/16 11/29/16 Range/Units 22:30 22:30 22:30 WBC (4.0-10.5) K/mm3 RBC (4.1-5.4) M/mm3 Hgb (12.0-16.0) gm/dl Hct (35-47) % MCV (78-100) fl MCH (26-32) pg MCHC (32-36) g/dl RDW (11.5-14.0) % Plt Count (150-450) K/mm3 MPV (6-9.5) fl Gran % (36.0-66.0) % Lymphocytes % (24.0-44.0) % Monocytes % (0.0-12.0) % Eosinophils % (0.00-5.0) % Basophils % (0.0-0.4) % Basophils # (0-0.4) INR 1.02 (0.8-3.0) D-Dimer 293 (0-500) ng/mL Sodium 141 (136-145) mEq/L Potassium 3.8 (3.5-5.1) mEq/L Chloride 103 (98-107) mEq/L Carbon Dioxide 28.6 (21-32) mEq/L Anion Gap 12.8 (5-15) MEQ/L BUN 19 (9-20) mg/dL Creatinine 0.76 (0.55-1.30) mg/dl Estimated GFR > 60 ML/MIN Glucose 98 (70-110) MG/DL Calcium 10.3 H (8.5-10.1) mg/dL Total Bilirubin 0.30 (0.2-1.0) mg/dL AST 14 L (15-37) U/L ALT 15 (12-78) U/L Alkaline Phosphatase 111 (46-116) U/L Troponin I < 0.017 (0.000-0.056) ng/ml NT-Pro-B Natriuret Pep 194 (0-450) pg/ml Serum Total Protein 6.9 (6.4-8.2) gm/dL Albumin 3.8 (3.4-5.0) g/dL 11/29/16 Range/Units 22:30 WBC 7.9 (4.0-10.5) K/mm3 RBC 4.65 (4.1-5.4) M/mm3 Hgb 13.5 (12.0-16.0) gm/dl Hct 41.4 (35-47) % MCV 89.0 (78-100) fl MCH 29.0 (26-32) pg MCHC 32.6 (32-36) g/dl RDW 13.8 (11.5-14.0) % Plt Count 339 (150-450) K/mm3 MPV 8.8 (6-9.5) fl Gran % 53.0 (36.0-66.0) % Lymphocytes % 37.2 (24.0-44.0) % Monocytes % 7.5 (0.0-12.0) % Eosinophils % 1.8 (0.00-5.0) % Basophils % 0.5 (0.0-0.4) % Basophils # 0.04 (0-0.4) INR (0.8-3.0) D-Dimer (0-500) ng/mL Sodium (136-145) mEq/L Potassium (3.5-5.1) mEq/L Chloride (98-107) mEq/L Carbon Dioxide (21-32) mEq/L Anion Gap (5-15) MEQ/L BUN (9-20) mg/dL Creatinine (0.55-1.30) mg/dl Estimated GFR ML/MIN Glucose (70-110) MG/DL Calcium (8.5-10.1) mg/dL Total Bilirubin (0.2-1.0) mg/dL AST (15-37) U/L ALT (12-78) U/L Alkaline Phosphatase (46-116) U/L Troponin I (0.000-0.056) ng/ml NT-Pro-B Natriuret Pep (0-450) pg/ml Serum Total Protein (6.4-8.2) gm/dL Albumin (3.4-5.0) g/dL - Progress Progress Note: 11/30/16 00:22 PATIENT GIVEN ASPIRIN 81MG X 4 DOSES, NITROGLYCERIN 0.4MG SL X 3 DOSES, NITROPASTE 1"ANTERIOR CHEST WALL, IV MORPHIE 2 MG X 2 WITH MODERATE RELIEF PAIN DISCOMFORT Discussed with : Wilbert (DISCUSSED WITH DR JIMENEZ AT 0025 FOR ADMISSION) Will see patient in: hospital (observation) - Departure Time of Disposition: 00:40 Departure Disposition: Observation Clinical Impression: ACUTE CHEST PAIN Condition: Stable Critical Care Time: No Referrals: FERNANDA CHA [Primary Care Provider] -
[2016-11-29] MEDS ORDERED: Sodium Chloride 0.9% 1000 ML 1,000 ML ONE (22:32)
[2016-11-29] MEDS ORDERED: BABY ASPIRIN 81 MG CHEW ONE (22:32)
[2016-11-29 22:42] LABS: BASOPHIL % 0.5 % (0.0-0.4); Eosinophil % 1.8 % (0.00-5.0); Lymphocytes % 37.2 % (24.0-44.0); Mean Platelet Volume 8.8 fl (6-9.5); Monocytes % 7.5 % (0.0-12.0); Platelet Count 339 K/mm3 (150-450); Red Blood Count 4.65 M/mm3 (4.1-5.4); Red Cell Distribution Width 13.8 % (11.5-14.0); White Blood Count 7.9 K/mm3 (4.0-10.5)
[2016-11-29 22:52] LABS: INR 1.02 (0.8-3.0); PROTIME 11.3 SECONDS (9.95-12.35)
[2016-11-29 23:07] LABS: ALBUMIN 3.8 g/dL (3.4-5.0); ALKALINE PHOSPHATASE 111 U/L (46-116); ANION GAP 12.8 MEQ/L (5-15); BLOOD UREA NITROGEN 19 mg/dL (9-20); CHLORIDE 103 mEq/L (98-107); Carbon Dioxide 28.6 mEq/L (21-32); Glucose 98 MG/DL (70-110); Potassium 3.8 mEq/L (3.5-5.1); SGOT/AST 14 U/L (15-37); SGPT/ALT 15 U/L (12-78); SODIUM 141 mEq/L (136-145); Total Protein 6.9 gm/dL (6.4-8.2)
[2016-11-29] MEDS ORDERED: NITRO-BID 2% UD PACKETS TOP ONE (23:32)
[2016-11-29] MEDS ORDERED: NITRO-BID 2% UD PACKETS ONE (23:41)
[2016-11-30] MEDS ORDERED: MORPHINE SULFATE 2 MG INJ IV ONE ×2 (00:02→00:16)
[2016-11-30] MEDS ORDERED: MORPHINE SULFATE 2 MG INJ ONE ×2 (00:05→00:20)
[2016-11-30] MEDS ORDERED: Nitrostat 0.4 MG Tablet SL PRN (00:38)
[2016-11-30] MEDS ORDERED: Zofran 4 MG/2 ML VIAL IV PRN (00:38)
[2016-11-30] MEDS ORDERED: Sodium Chloride 0.9% 500 ML 500 ML IV SCH (00:45)
[2016-11-30] MEDS: NITRO-BID 2% UD PACKETS TOP SCH ×3 (05:47→22:07)
[2016-11-30] MEDS ORDERED: MORPHINE SULFATE 2 MG INJ IV PRN (06:08)
--- NOTE | 2016-11-30 08:39 | XRAY ---
Indication: Chest pain. Comparison: April 28, 2016. Portable chest demonstrates new left base subsegmental atelectasis/scarring. Remaining lungs clear again with a few incidental calcified granulomas. Heart is not enlarged. Bony thorax intact again with mild osteopenia, degenerative changes, and scoliosis. Impression: Nonacute chest with chronic features.
[2016-11-30] MEDS: SYNTHROID 75 MCG PO SCH (09:25)
[2016-11-30] MEDS ORDERED: Cardizem CD 180 MG PO SCH (10:00)
[2016-11-30] MEDS ORDERED: Klor Con 10 MEQ PO SCH (10:00)
--- NOTE | 2016-11-30 13:13 | HP ---
CHIEF COMPLAINT: Chest pain, shortness of breath. HISTORY OF PRESENT ILLNESS: The patient is an 86 year-old white female who reportedly over the past evening she was having chest discomfort which would radiate from her mid chest to her left shoulder. The patient reported she thought this was it. She presented to the emergency room for evaluation and management and was admitted to the hospital for rule out myocardial infarction. PAST MEDICAL/SURGICAL HISTORY: Significant for peripheral neuropathy, CVA, coronary artery disease, hypothyroid, colorectal cancer, diverticulitis. HOME MEDICATIONS: Currently include aspirin 81 mg a day, diltiazem 180 mg a day, Furosemide daily, levofloxacin 75 mg daily, pantoprazole 40 mg, potassium 10 mEq daily. ALLERGIES: PENICILLIN, CORTISONE, PROMETHAZINE. PHYSICAL EXAMINATION: Revealed a well nourished, well developed 86 year-old white female currently in no obvious distress. VITAL SIGNS: The patient's vital signs on admission showed temperature 98.3F, pulse 66, respiratory rate 16, blood pressure 162/57. O2 saturation 95% on room air. HEENT: Normocephalic, atraumatic. Pupils equal round reactive to light. Extraocular movements intact. Oropharynx is pink and moist. NECK: Supple without lymphadenopathy, thyromegaly or JVD. CHEST: Clear to auscultation with good air movement bilaterally. HEART: Regular rate and rhythm without murmurs, rubs or gallops. ABDOMEN: Soft, nontender, nondistended without hepatosplenomegaly or masses. EXTREMITIES: Without clubbing, cyanosis or edema. NEUROLOGIC: The patient is alert and oriented x3. LAB DATA AND TESTS: EKG showed normal sinus rhythm, normal axis and appeared to be in sinus rhythm with no obvious ST-T wave changes. The patient's initial laboratory studies showed the troponins were less than 0.017. She had normal CBC, normal metabolic panel. Pro-time 11.3. International normalized ratio 1.02. D-dimer was normal at 293. Chest x-ray showed new left base subsegmental atelectasis/scarring. ASSESSMENT: Chest pain. History of coronary artery disease. She has been admitted to the hospital to rule out myocardial infarction. We will be obtaining consultation from her tour leader, Dr. Restrepo. Continue her usual home medications and placed her on chest pain pathway in the ICU.
[2016-11-30] MEDS ORDERED: IRON PO SCH (13:15)
[2016-11-30] MEDS ORDERED: FOLIC ACID PO SCH (13:15)
[2016-11-30] MEDS ORDERED: MV MN PO SCH (13:15)
[2016-11-30] MEDS ORDERED: HERB PO SCH (13:15)
[2016-11-30] MEDS: ECOTRIN 81 MG PO SCH (13:59)
[2016-11-30] MEDS: THERAGRAN MULTIVITAMIN PO SCH (13:59)
[2016-11-30] MEDS: Protonix 40MG Tablet PO SCH (13:59)
[2016-11-30] MEDS: Lasix 40 MG PO SCH ×2 (13:59→14:10)
[2016-11-30] MEDS: Cardizem CD 180 MG PO SCH ×2 (14:52→22:07)
[2016-11-30] MEDS ORDERED: FISH OIL 1,000 MG CAPSULE PO SCH (22:00)
[2016-11-30] MEDS: Carafate 1 GM PO SCH (22:20)
[2016-12-01] MEDS: NITRO-BID 2% UD PACKETS TOP SCH (05:23)
[2016-12-01 05:55] VITALS: O2SAT 93
--- NOTE | 2016-12-01 08:44 | XRAY ---
Indication: Pain. Two-dimensional right upper quadrant abdominal sonogram performed. Comparison: None Gallbladder normally distended with several small gallstones, largest 9 mm. No gallbladder wall thickening or pericholecystic fluid. Common bile duct measures 4.9 mm. No intrahepatic biliary distention. There are a few scattered hepatic cysts with cluster of cysts in the right lobe, largest measuring 3.9 cm. No focal solid hepatic mass or ascites. Remaining visualized portions of the pancreas and right kidney appear sonographically unremarkable. Right kidney measures 9.2 cm in length. Impression: 1. Gallstones. Negative for acute cholecystitis or abnormal biliary distention. 2. Hepatic cysts.
--- NOTE | 2016-12-01 08:52 | CONS ---
CONSULT DATE: 11/30/2016 BRIEF HISTORY: This is an 86 year-old female who was seen because of chest pains. Her symptoms started yesterday while she was at rest. She suddenly just did not feel well and had chest discomfort that started in the substernal that radiated to the back. There was no nausea, no vomiting. No diarrhea. No constipation. No diaphoresis. The pain seems to be brief but this occurred four times. She described the pain as somewhat severe. She eventually ended up in the emergency room of [facility] and was given some Nitro, morphine and chest pain subsided today. Her serial troponin I is normal. The patient has been previously worked up for chest pain including a pharmacological stress test done in May showed no evidence of ischemia. She denies exertional-type of chest pains. CARDIAC RISK FACTORS: Negative for diabetes. She does not smoke. No known hyperlipidemia. She has hypertension which is well controlled. FAMILY HISTORY: Negative for premature coronary artery disease. MEDICATIONS: Aspirin, diltiazem, Furosemide, Levaquin, Protonix, potassium. ALLERGIES: PENICILLIN, CORTISONE, PROMETHACINE. REVIEW OF SYSTEMS: CRITICAL CARE CLINICAL NURSE SPECIALIST: No history of stroke or seizures. RESPIRATORY: No chronic cough or hemoptysis. GI: He has history of hiatal hernia. : Negative for dysuria or hematuria. PERIPHERAL VASCULAR: No history of DVT or claudication. SKIN: No active dermatological problems. ENDOCRINE: No history of thyroid disorder. PAST SURGICAL HISTORY: Colon surgery. Hysterectomy. SOCIAL HISTORY: She denies any significant alcohol intake. She is a volunteer at the hospital. She is a . She has three children. PHYSICAL EXAMINATION: Blood pressure 138/54, heart rate 78, respirations about 14. GENERAL: The patient is an elderly female who is alert, oriented, very pleasant and conversant with normal mental status. HEENT: Unremarkable. NECK: No significant JVD. No definite carotid bruit. No lymphadenopathy. CHEST: The breath sounds are clear bilaterally. No rhonchi. CARDIAC: Heart tones are normal. There is a grade 2/6 mid systolic murmur heard along the left parasternal border. There is no S3 gallop. No definite rub. ABDOMEN: Soft with normal bowel sounds. No bruit. EXTREMITIES: No significant edema with palpable distal pulses. LAB DATA AND DIAGNOSTIC TESTS: The EKG shows sinus rhythm. No significant ST-T displacement. Chest x-ray is unremarkable. Serial troponin I is normal x4. CBC showed hemoglobin 13.5, PLT about 139,000. Creatinine 0.76, glomerular filtration rate 60. Serum electrolytes are normal. Pro-BNP 194. D-dimer 293 which is in the normal range. IMPRESSION: In essence the patient presented with chest pains somewhat atypical for angina. There is no evidence of myocardial infarction. Her previous work up for ischemic coronary artery disease has been negative. She has minimal coronary risk factors so possibly this is GI in origin. I would add Carafate to the medical regimen. Will also get ultrasound test of the gallbladder and perhaps in the future will need upper endoscopy. If work up for GI is negative will repeat pharmacologic stress test. I will continue blood pressure control. I will follow up the patient in the clinic.
--- NOTE | 2016-12-01 08:57 | PCM.DCORD ---
- Discharge Discharge Date: 12/01/16 Prescriptions: Continue PANTOPRAZOLE 40 mg Tablet [Protonix 40MG Tablet] 40 mg PO DAILY Levothyroxine Sodium 75 Mcg [Synthroid 75 Mcg] 75 mcg PO DAILY Furosemide 1 tab PO DAILY Diltiazem HCl 180 mg [Cardizem CD 180 MG] 180 mg PO HS Potassium Chloride 10 Meq Tab* [Klor Con 10 MEQ] 10 meq PO DAILY Multivitamin with Minerals [Multivitamins with Minerals] 1 tab PO DAILY [place]-3 Fatty Acids/Fish Oil [Fish Oil 1,000 mg Capsule] 1 tab PO HS Mv-Mn/Iron/Folic Acid/Herb 190 [Vitamin D3 Complete Caplet] 1 each PO DIRECTIONS UNKNOWN Aspirin 81 mg PO DAILY #0 Follow up with: FERNANDA CHA [Primary Care Provider] -
[2016-12-01] MEDS: Carafate 1 GM PO SCH (09:04)
[2016-12-01] MEDS: ECOTRIN 81 MG PO SCH (09:05)
[2016-12-01] MEDS: SYNTHROID 75 MCG PO SCH (09:06)
[2016-12-01] MEDS: Protonix 40MG Tablet PO SCH (09:06)
[2016-12-01] MEDS: Lasix 40 MG PO SCH (09:06)
[2016-12-01] MEDS: THERAGRAN MULTIVITAMIN PO SCH (09:07)
[2016-12-01 09:37] VITALS: BP 185/79; PULSE 67
[2016-12-01] MEDS ORDERED: Klor Con 10 MEQ PO SCH (10:00)
[2016-12-01] MEDS ORDERED: MULTIVITAMIN WITH MINERALS PO SCH (10:00)
[2016-12-01] MEDS ORDERED: NON-FORMULARY ITEM (Aspirin [Aspirin] 81 MG) PO SCH (10:00)
--- NOTE | 2016-12-01 11:33 | DS ---
DISCHARGE DIAGNOSES: 1) CHEST PAIN. 2) CORONARY ARTERY DISEASE. CONSULTANTS: Dr. Restrepo. HOSPITAL COURSE: The patient is an 86 year-old white female who presented to the emergency room with crushing chest pain. She was admitted to the hospital. Myocardial infarction was ruled out. She had a consultation with Dr. Restrepo. She had gallbladder ultrasound which was essentially negative. She did rule out for myocardial infarction. By the morning of 12/01/2016 she was feeling much better, perky and happy sitting on the side of the bed with her daughters. Dr. Restrepo felt the patient could be discharged home on Carafate and just her usual medications. He will see her in follow up after which time it was discussed doing a chemical stress test. He also suggested possible upper endoscopy if all the other testing was essentially negative. She was discharged home on her usual home medications at this time with the addition of Carafate 1 gm four times a day orally.
== END 2016-12-01 09:45 | disposition home or self-care (01) ==
LOC: ED 21:55 → ICU 11-30 00:57 → MED SURG 11-30 19:46
PROVIDERS: ADMIT Family Medicine; ATTEND Family Medicine
DX: R07.89 Other chest pain (principal); I25.10 Atherosclerotic heart disease of native coronary artery without angina pectoris; G62.9 Polyneuropathy, unspecified; Z86.73 Personal history of transient ischemic attack (TIA), and cerebral infarction without residual deficits; E03.9 Hypothyroidism, unspecified; J98.11 Atelectasis; Z85.038 Personal history of other malignant neoplasm of large intestine; Z79.899 Other long term (current) drug therapy
CPT/HCPCS: 36415; 71010; 76705; 80053; 83880; 84484; 85025; 85379; 85610; 93005; 93041; 96374; 99285; G0378; J2270; A9270-GY

== ENCOUNTER 2016-12-25 10:56 | Day surgery (SDC) | payer MEDICARE, OTHER ==
--- NOTE | 2016-12-25 08:43 | HP ---
DATE OF SURGERY: 12/25/2016 HISTORY OF PRESENT ILLNESS: The patient is an 86 year-old who had some problems with some pain in the shoulder radiating to her back. No change in with eating. No specific food trigger. She is in need of upper endoscopy to rule out esophagitis, gastritis, ulcer disease and also see if she has any narrowed area that might need biopsied or dilatation. PAST MEDICAL HISTORY: Heart disease, hypothyroidism, colon cancer in the past. PAST SURGICAL HISTORY: Colonoscopy in the past. She had colectomy in the past for colon cancer. MEDICATIONS: Diltiazem, Furosemide, hydrochlorothiazide, nitroglycerin PRN, pantoprazole, sulcralfate, Synthroid for some hyperthyroidism. ALLERGIES: PENICILLIN, CORTISONE. FAMILY HISTORY: Cancer. SOCIAL HISTORY: No smoking or alcohol abuse. REVIEW OF SYSTEMS: Twelve systems reviewed per admission assessment. No chest pain or palpitations other systems negative or noncontributory as above and per preadmission questionnaire. PHYSICAL EXAMINATION: GENERAL: No acute distress. HEENT: Sclerae nonicteric. NECK: No JVD. CHEST: Equal excursion, nonlabored breathing. CVS: Regular rate and rhythm. ABDOMEN: Soft. No peritoneal signs. Mild tenderness epigastrium. EXTREMITIES: No significant edema. NEURO: Alert, moving extremities symmetrically. No gross motor deficits noted. IMPRESSION: Some epigastric pain radiating mid chest to her back. No change with eating. Cardiac etiology has been ruled out. Gallbladder ultrasound was reportedly okay. I feel she would benefit from upper endoscopy possible biopsy possible dilatation depending on operative findings. Risks and benefits explained in detail including but not limited to bleeding or infection, small risk of bowel injury or perforation possibly requiring open procedure, risk of ongoing morbidity, general risk of anesthesia or sedation, possibility of inability to diagnose the etiology of her symptoms possibly requiring further work up, HIDA scan, other studies or procedures. She understands and agrees to the planned procedure and will proceed with EGD possible biopsy, possible dilatation as an outpatient.
[2016-12-25] MEDS ORDERED: DIPRIVAN 200 MG/20 ML IV ONE (10:57)
[2016-12-25] MEDS ORDERED: Lactated Ringers 1,000 ML IV SCH (11:30)
[2016-12-25 13:53] VITALS: BP 145/81; PULSE 62; O2SAT 97
--- NOTE | 2016-12-25 14:55 | OP ---
SURGERY DATE/TIME: 12/25/2016 1205 PREOPERATIVE DIAGNOSIS: History of epigastric or substernal area pain radiating back to her back. POSTOPERATIVE DIAGNOSES: 1) Minimal to mild gastritis. 2) Mild esophagitis. PROCEDURES: 1) EGD with cold biopsy of the small bowel to evaluate for celiac sprue. 2) Cold biopsy of the antrum to evaluate for Helicobacter pylori. 3) Cold biopsy distal esophagus gastroesophageal junction to evaluate for esophagitis. 4) Cold biopsy of mid to proximal esophagus at 20 cm and also to evaluate for esophagitis versus patchy area of Cleary's metaplasia. SURGEON: Dr. Dell Cool. ANESTHESIA: MAC. ESTIMATED BLOOD LOSS: Minimal. INDICATIONS: As noted above. Risks and benefits explained in detail and not limited to and consent obtained. She has prior history of gallbladder ultrasound being negative. It was felt she warranted upper endoscopy for further evaluation. DESCRIPTION OF PROCEDURE AND FINDINGS: The patient is taken to the operating room. MAC anesthesia introduced. After official time out and no disagreement with planned procedure, a bite block positioned. Video gastroscope easily passed down the esophagus through the patent pylorus to the junction of the second and third portion of the duodenum. On withdrawal of the scope duodenum and duodenal bulb grossly unremarkable. A cold biopsy taken of the small bowel to evaluate for celiac sprue given the vague nature of her symptoms. There is no evidence of any ulcers. The scope pulled back in the antrum. She had some minimal to mild gastritis. Cold biopsy taken to evaluate for Helicobacter pylori. Good hemostasis noted. On retroflex there was a very slight weakness at the hiatus. It is unclear whether this is a slight hiatal hernia versus just normal variation. Either way there did not appear to be any visible large hiatal hernia at least endoscopically. Otherwise the scope was straightened. Gastroesophageal junction noted to be about 40 cm. Short segment of some distal esophagitis versus early metaplasia. Cold biopsy taken for further evaluation. Good hemostasis noted. Otherwise there did not appear to be any significant narrowed area that warrants any dilatation at this point. The scope is pulled back to the mid esophagus. There appeared to be a patchy area, pinkness or inflammation whether this is scattered patchy area of Cleary's metaplasia versus esophagitis, cold biopsy is taken. Good hemostasis noted. The remainder of the esophagus grossly unremarkable. No signs of any obvious masses or other mucosal lesions. The scope is withdrawn. The patient tolerated the procedure well. There were no immediate complications. Findings discussed with the family out in the waiting area. Whether this is esophagitis causing her symptoms versus other etiology such as biliary dyskinesia is unclear. We will see how she is doing when we see her back in the office to go over the biopsy results. If she fails to improve could consider upper GI study or pH test to document any degree of reflux versus consideration and also checking HIDA scan to rule out other biliary source of her symptoms. I will see her back in the office next week.
== END 2016-12-25 13:58 | disposition home or self-care (01) ==
LOC: SDC 10:56
PROVIDERS: ATTEND Surgery
PROC: 0DB38ZX Excision of Lower Esophagus, Via Natural or Artificial Opening Endoscopic, Diagnostic (ICD-10-PCS; principal; 2016-12-25)
PROC: 0DB88ZX Excision of Small Intestine, Via Natural or Artificial Opening Endoscopic, Diagnostic (ICD-10-PCS; 2016-12-25)
PROC: 0DB78ZX Excision of Stomach, Pylorus, Via Natural or Artificial Opening Endoscopic, Diagnostic (ICD-10-PCS; 2016-12-25)
PROC: 0DB18ZX Excision of Upper Esophagus, Via Natural or Artificial Opening Endoscopic, Diagnostic (ICD-10-PCS; 2016-12-25)
DX: K29.70 Gastritis, unspecified, without bleeding (principal); K20.9 Esophagitis, unspecified; I51.9 Heart disease, unspecified; E03.9 Hypothyroidism, unspecified; Z85.038 Personal history of other malignant neoplasm of large intestine; Z90.49 Acquired absence of other specified parts of digestive tract; Z79.899 Other long term (current) drug therapy
CPT/HCPCS: 00740; 36415; 87081; 88305; 99100; J2704

== ENCOUNTER 2016-12-27 12:39 | Emergency (ER) | payer MEDICARE, OTHER ==
[2016-12-27] MEDS ORDERED: GI COCKTAIL 45 ML (Maalox/Lidocaine) PO ONE (13:28)
[2016-12-27] MEDS ORDERED: Pepcid 20 MG VIAL IV ONE ×2 (13:28→13:59)
[2016-12-27] MEDS ORDERED: Carafate 1 GM PO ONE ×2 (13:28→13:59)
--- NOTE | 2016-12-27 13:28 | ERPHSYRPT ---
- History of Present Illness Time Seen by Provider: 12/27/16 13:25 Historian: patient Exam Limitations: no limitations Patient Subjective Stated Complaint: PT REPORTS SUB STERNAL CHEST PAIN BEGINNING A COUPLE HR AOG-REPORTS SHE WASN'T SURE IF IT WAS HER HEARTBURN OR CHEST PAIN-STATES SHE HAD AN UPPER SCOPE SUNDAY-DENIES DIAPHORESIS-DENIES N/V/D- DENIES SOB Triage Nursing Assessment: PT PINK WARM ET [id number] QUESTIONS CORRECTLY-RESP EASY ET NONLABORED-SPEAKING IN COMPLETE SENTENCES WITH EASE-LEFT RADIAL PULSE REGULAR Physician History: The patient is an 86-year-old female complaining of chest pain that began 30 minutes ago. She took one nitroglycerin with some relief. She denies nausea or vomiting. She denies shortness of breath. She has no heart disease. She had a procedure done 2 days ago for possible gallstones. She doesn't know the answer if she has gallstones or heart problem. She is a relatively poor historian. Her past medical history is significant for hypertension, GERD, and hypothyroidism. She's also had colon cancer and a stroke with minor residual deficits in her left leg. Timing/Duration: today, hour(s) (1/2), gradual onset Activities at Onset: rest Quality: fullness Location: substernal Chest Pain Radiation: back Severity of Pain-Max: moderate Severity of Pain-Current: moderate Modifying Factors: Improves With: nitroglycerin Associated Symptoms: denies symptoms, No nausea, No vomiting Prior Chest Pain/Cardiac Workup: no prior chest pain Nitro Today/Relief: 0.4 mg x 1, mild relief Aspirin Treatment Today: 81 mg x 1 Allergies/Adverse Reactions: Penicillins Allergy (Severe, Verified 12/27/16 12:55) chest pain, sob, tongue swelling cortisone [Cortisone] Allergy (Mild, Verified 12/27/16 12:55) aggrivates ulcer promethazine HCl [From Phenergan] Allergy (Mild, Verified 12/27/16 12:55) hives, itching Home Medications: Diltiazem HCl 180 mg [Cardizem CD 180 MG] 180 mg PO HS 08/11/11 [History] Furosemide 1 tab PO DAILY 08/11/11 [History] Levothyroxine Sodium 75 Mcg [Synthroid 75 Mcg] 75 mcg PO DAILY 08/11/11 [ History] Multivitamin with Minerals [Multivitamins with Minerals] 1 tab PO DAILY [History] [place]-3 Fatty Acids/Fish Oil [Fish Oil 1,000 mg Capsule] 1 tab PO HS [History] PANTOPRAZOLE 40 mg Tablet [Protonix 40MG Tablet] 40 mg PO DAILY 08/11/11 [ History] Potassium Chloride 10 Meq Tab* [Klor Con 10 MEQ] 10 meq PO DAILY 08/11/11 [ History] Mv-Mn/Iron/Folic Acid/Herb 190 [Vitamin D3 Complete Caplet] 1 each PO DAILY [History] Hx Tetanus, Diphtheria Vaccination/Date Given: No Hx Influenza Vaccination/Date Given: Yes Hx Pneumococcal Vaccination/Date Given: Yes Immunizations Up to Date: Yes - Review of Systems Constitutional: No Fever, No Chills Eyes: No Symptoms Ears, Nose, & Throat: No Symptoms Respiratory: No Cough, No Dyspnea Cardiac: Chest Pain Abdominal/Gastrointestinal: No Abdominal Pain, No Nausea, No Vomiting, No Diarrhea Genitourinary Symptoms: No Dysuria Musculoskeletal: No Back Pain, No Neck Pain Skin: No Rash Neurological: No Dizziness, No Focal Weakness, No Sensory Changes Psychological: No Symptoms Endocrine: No Symptoms Hematologic/Lymphatic: No Symptoms Immunological/Allergic: No Symptoms All Other Systems: Reviewed and Negative - Past Medical History Pertinent Past Medical History: Yes Neurological History: Peripheral Neuropathy, Stroke, TIA ENT History: No Pertinent History Cardiac History: Angina, Arrhythmia, Hypertension, Other Respiratory History: No Pertinent History Endocrine Medical History: Hypothyroidism Musculoskeletal History: No Pertinent History GI Medical History: Colitis, Colorectal Cancer, Diverticulitis, GERD, GI Bleed, Hemorrhoids History: No Pertinent History Psycho-Social History: No Pertinent History Female Reproductive Disorders: No Pertinent History Other Medical History: leaky heart valve - Past Surgical History Past Surgical History: Yes Neuro Surgical History: No Pertinent History Cardiac: Vascular Surgery Respiratory: No Pertinent History Gastrointestinal: Colon Resection Genitourinary: No Pertinent History Musculoskeletal: Orthopedic Surgery Female Surgical History: Hysterectomy, Other Other Surgical History: rt hand surgery,tubal pregnacy, pt unsure about vascular surgery? - Social History Smoking Status: Never smoker Exposure to second hand smoke: No Drug Use: none Patient Lives Alone: No - Nursing Vital Signs Nursing Vital Signs: Initial Vital Signs Temperature 98.7 F 12/27/16 12:45 Pulse Rate 60 12/27/16 12:45 Respiratory Rate 20 12/27/16 12:45 Blood Pressure 177/63 12/27/16 12:45 O2 Sat by Pulse Oximetry 97 12/27/16 12:45 Pain Scale Pain Intensity 4 - Physical Exam General Appearance: mild distress Eye Exam: PERRL/EOMI, eyes nml inspection Ears, Nose, Throat Exam: normal ENT inspection, moist mucous membranes Neck Exam: normal inspection, non-tender, supple, full range of motion Respiratory Exam: normal breath sounds, lungs clear, No respiratory distress Cardiovascular Exam: regular rate/rhythm, normal heart sounds Gastrointestinal/Abdomen Exam: tenderness (epigastric) Pelvic Exam: not done Rectal Exam: not done Back Exam: normal inspection, No CVA tenderness, No vertebral tenderness Extremity Exam: normal inspection, normal range of motion Neurologic Exam: alert, oriented x 3, cooperative, normal mood/affect, sensation nml, No motor deficits SpO2 Interpretation: normal SpO2: 97 Oxygen Delivery: Room Air - Course EKG Interpreted by Me: RATE, Sinus Rhythm, NORMAL AXIS, NORMAL INTERVALS, NORMAL QRS, NORMAL ST-T - Radiology Exams Chest X-ray Interpretation: Teleradiologist Report, Negative (per Dr Sidhu) Ordered Tests: Active Orders 24 hr Category Date Time Status EKG-ER Only STAT Care 12/27/16 13:30 Active IV Insertion STAT Care 12/27/16 13:28 Active CHEST 2 VIEWS (PA AND LAT) Stat Exams 12/27/16 13:28 Completed CBC W DIFF Stat Lab 12/27/16 13:00 Completed CMP Stat Lab 12/27/16 13:00 Completed LIPASE Stat Lab 12/27/16 13:00 Completed TROPONIN Q3H Lab 12/27/16 13:00 Completed TROPONIN Q3H Lab 12/27/16 15:45 Completed TROPONIN Q3H Lab 12/27/16 19:30 Ordered TROPONIN Q3H Lab 12/27/16 22:30 Ordered TROPONIN Q3H Lab 12/28/16 01:30 Ordered Medication Summary Generic Name Dose Route Start Last Admin Trade Name Freq PRN Reason Stop Dose Admin Nitroglycerin 0.4 mg 12/27/16 13:30 12/27/16 14:02 Nitrostat 0.4 Mg Tablet SL 01/26/17 13:29 0.4 mg Q5MIN PRN MR X 3 PRN Administration CHEST PAIN Discontinued Medications Generic Name Dose Route Start Last Admin Trade Name Stewart PRN Reason Stop Dose Admin Al Hydrox/Mg Hydrox/Simethicone Confirm 12/27/16 14:00 Maalox Es 30 Ml Unit Dose Administered 12/27/16 14:01 Dose 30 ml .ROUTE .STK-MED ONE Famotidine 20 mg 12/27/16 13:28 12/27/16 14:04 Pepcid 20 Mg Vial IV 12/27/16 13:29 20 mg STAT ONE Administration Famotidine Confirm 12/27/16 13:59 Pepcid 20 Mg Vial Administered 12/27/16 14:00 Dose 20 mg IV .STK-MED ONE Lidocaine HCl Confirm 12/27/16 13:59 Xylocaine Hcl Viscous * Administered 12/27/16 14:00 Dose 1 ml .ROUTE .STK-MED ONE Magnesium Hydroxide 45 ml 12/27/16 13:28 12/27/16 14:09 Gi Cocktail 45 Ml (Maalox/Lidocaine) PO 12/27/16 13:29 45 ml STAT ONE Administration Nitroglycerin Confirm 12/27/16 13:59 Nitrostat 0.4 Mg (Ed) Administered 12/27/16 14:00 Dose 0.4 mg SL .STK-MED ONE Sucralfate 1 g 12/27/16 13:28 12/27/16 14:04 Carafate 1 Gm PO 12/27/16 13:29 1 g STAT ONE Administration Sucralfate Confirm 12/27/16 13:59 Carafate 1 Gm Administered 12/27/16 14:00 Dose 1 g PO .STK-MED ONE Lab/Rad Data: Laboratory Result Diagrams 12/27/16 13:00 12/27/16 13:00 Laboratory Results 12/27/16 12/27/16 12/27/16 Range/Units 15:45 13:00 13:00 WBC (4.0-10.5) K/mm3 RBC (4.1-5.4) M/mm3 Hgb (12.0-16.0) gm/dl Hct (35-47) % MCV (78-100) fl MCH (26-32) pg MCHC (32-36) g/dl RDW (11.5-14.0) % Plt Count (150-450) K/mm3 MPV (6-9.5) fl Gran % (36.0-66.0) % Lymphocytes % (24.0-44.0) % Monocytes % (0.0-12.0) % Eosinophils % (0.00-5.0) % Basophils % (0.0-0.4) % Basophils # (0-0.4) Sodium 139 (136-145) mEq/L Potassium 3.5 (3.5-5.1) mEq/L Chloride 100 (98-107) mEq/L Carbon Dioxide 30.6 (21-32) mEq/L Anion Gap 12.3 (5-15) MEQ/L BUN 16 (9-20) mg/dL Creatinine 0.75 (0.55-1.30) mg/dl Estimated GFR > 60 ML/MIN Glucose 96 (70-110) MG/DL Calcium 10.1 (8.5-10.1) mg/dL Total Bilirubin 0.50 (0.2-1.0) mg/dL AST 19 (15-37) U/L ALT 17 (12-78) U/L Alkaline Phosphatase 106 (46-116) U/L Troponin I < 0.017 < 0.017 (0.000-0.056) ng/ml Serum Total Protein 7.6 (6.4-8.2) gm/dL Albumin 4.3 (3.4-5.0) g/dL Lipase 153 (73-393) U/L 12/27/16 Range/Units 13:00 WBC 7.5 (4.0-10.5) K/mm3 RBC 4.99 (4.1-5.4) M/mm3 Hgb 14.5 (12.0-16.0) gm/dl Hct 44.9 (35-47) % MCV 90.0 (78-100) fl MCH 29.1 (26-32) pg MCHC 32.3 (32-36) g/dl RDW 14.2 H (11.5-14.0) % Plt Count 355 (150-450) K/mm3 MPV 9.3 (6-9.5) fl Gran % 56.7 (36.0-66.0) % Lymphocytes % 34.9 (24.0-44.0) % Monocytes % 6.4 (0.0-12.0) % Eosinophils % 1.3 (0.00-5.0) % Basophils % 0.7 (0.0-0.4) % Basophils # 0.05 (0-0.4) Sodium (136-145) mEq/L Potassium (3.5-5.1) mEq/L Chloride (98-107) mEq/L Carbon Dioxide (21-32) mEq/L Anion Gap (5-15) MEQ/L BUN (9-20) mg/dL Creatinine (0.55-1.30) mg/dl Estimated GFR ML/MIN Glucose (70-110) MG/DL Calcium (8.5-10.1) mg/dL Total Bilirubin (0.2-1.0) mg/dL AST (15-37) U/L ALT (12-78) U/L Alkaline Phosphatase (46-116) U/L Troponin I (0.000-0.056) ng/ml Serum Total Protein (6.4-8.2) gm/dL Albumin (3.4-5.0) g/dL Lipase (73-393) U/L - Progress Progress: improved Air Movement: good Blood Culture(s) Obtained: No Antibiotics given: No Counseled pt/family regarding: lab results, diagnosis, need for follow-up, rad results - Departure Time of Disposition: 16:38 Departure Disposition: Home Clinical Impression: Chest pain Condition: Stable Critical Care Time: No Referrals: FERNANDA CHA [Primary Care Provider] - Additional Instructions: You have noncardiac chest pain. You were given nitroglycerin 0.4 mg by mouth,, a GI cocktail by mouth, and famotidine 20 mg by IV. Your serial troponin results were both negative. You have a follow-up appointment scheduled for Sunday with Dr. Paniagua. I apologize for any inconvenience that they have occurred today. Hopefully Dr. Paniagua will be able to cover the reason for your pain.
[2016-12-27] MEDS ORDERED: Nitrostat 0.4 MG Tablet SL PRN (13:30)
[2016-12-27 13:35] LABS: BASOPHIL % 0.7 % (0.0-0.4); Eosinophil % 1.3 % (0.00-5.0); Granulocytes % 56.7 % (36.0-66.0); Lymphocytes % 34.9 % (24.0-44.0); Mean Corpuscular Hemoglobin 29.1 pg (26-32); Mean Platelet Volume 9.3 fl (6-9.5); Monocytes % 6.4 % (0.0-12.0); Platelet Count 355 K/mm3 (150-450); Red Blood Count 4.99 M/mm3 (4.1-5.4); Red Cell Distribution Width 14.2 % (11.5-14.0); White Blood Count 7.5 K/mm3 (4.0-10.5)
[2016-12-27 13:52] LABS: ALBUMIN 4.3 g/dL (3.4-5.0); ALKALINE PHOSPHATASE 106 U/L (46-116); ANION GAP 12.3 MEQ/L (5-15); BLOOD UREA NITROGEN 16 mg/dL (9-20); CHLORIDE 100 mEq/L (98-107); Carbon Dioxide 30.6 mEq/L (21-32); Glucose 96 MG/DL (70-110); LIPASE 153 U/L (73-393); Potassium 3.5 mEq/L (3.5-5.1); SGOT/AST 19 U/L (15-37); SGPT/ALT 17 U/L (12-78); SODIUM 139 mEq/L (136-145); Total Protein 7.6 gm/dL (6.4-8.2)
[2016-12-27] MEDS ORDERED: XYLOCAINE HCl Viscous ONE (13:59)
[2016-12-27] MEDS ORDERED: Nitrostat 0.4 MG (ED) SL ONE (13:59)
--- NOTE | 2016-12-27 13:59 | XRAY ---
Indication: Chest pain. Comparison: November 29, 2016. PA/lateral chest unchanged again hyperinflated with minimal left base atelectasis/scarring. Remaining heart and lungs normal. No new/acute findings.
[2016-12-27] MEDS ORDERED: MAALOX ES 30 ML UNIT DOSE ONE (14:00)
[2016-12-27 15:49] VITALS: BP 168/84; PULSE 54
[2016-12-27 16:42] VITALS: O2SAT 97
== END 2016-12-27 16:49 | disposition home or self-care (01) ==
LOC: ED 12:39
DX: R07.89 Other chest pain (principal); I10 Essential (primary) hypertension; E03.9 Hypothyroidism, unspecified; Z85.038 Personal history of other malignant neoplasm of large intestine; Z79.899 Other long term (current) drug therapy
CPT/HCPCS: 36000; 36415; 71020; 80053; 83690; 84484; 85025; 93005; 93041; 96374; 99284; A9270-GY

== ENCOUNTER 2017-01-22 10:16 | Day surgery (SDC) | payer MEDICARE, OTHER ==
--- NOTE | 2017-01-22 08:31 | HP ---
DATE OF SURGERY: 01/22/2017 HISTORY OF PRESENT ILLNESS: The patient is an 86 year-old female had some pain in her abdomen radiating to her back. No change in eating. No specific food trigger. She had an ultrasound of the gallbladder show cholelithiasis. She has prior history of right colectomy. Given the fact that she had some upper abdominal symptoms and gallstone, I feel she would benefit from cholecystectomy. She may have some chronic cholecystitis. She understands there is a little bit higher probability of needing open procedure as she has had prior laparotomy and right colectomy in the past. PAST MEDICAL/SURGICAL HISTORY: She had right colectomy in the past by Dr. Paniagua. She has history of stroke in the past. She had colonoscopy in the past. Hypothyroidism in the past as well as some hypertension. MEDICATIONS: Aspirin, multivitamin, vitamin D3, [place]-3 fish oil, multivitamins, potassium chloride, diltiazem, Cardizem, Furosemide, levothyroxine, pantoprazole. ALLERGIES: PENICILLIN, CORTISONE. FAMILY HISTORY: Negative for colon cancer. SOCIAL HISTORY: No smoking or alcohol abuse. REVIEW OF SYSTEMS: Twelve systems reviewed. No chest pain or palpitations other systems negative or noncontributory as above and per preadmission questionnaire. PHYSICAL EXAMINATION: GENERAL: No acute distress. HEENT: Sclerae nonicteric. NECK: No JVD. CHEST: Equal excursion, nonlabored breathing. CVS: Regular rate and rhythm. ABDOMEN: Soft. Laparotomy incision, prior right colectomy in the past. EXTREMITIES: No significant edema. NEURO: Alert, moving extremities symmetrically. No gross motor deficits noted. LAB DATA AND TESTS: Ultrasound showed cholelithiasis. IMPRESSION: Symptomatic cholelithiasis, probable chronic cholecystitis. I feel the patient will benefit from cholecystectomy. Risks and benefits explained in detail including but not limited to bleeding or infection, risk of trocar injury or hernia, small risk of bowel, bladder or blood vessel injury, small risk of bile leak, bile duct injury, retained stone or sludge possibly requiring further procedure either open or ERCP, general risk of anesthesia, deep venous thrombosis, pulmonary embolism, pneumonia, perioperative risk of aches, pains, bloating, constipation and/or loose stools possibly even chronic in nature. She also understands given her prior laparotomy for right colectomy in the past she is at risk of needing an open procedure with hospital stay, increased aches and pains, possible wound complications or infection but not limited to. She understands all the above but not limited to, will proceed with laparoscopic cholecystectomy with possible as an outpatient.
[~2017-01-22 10:16] MED LIST: CLINDAMYCIN-D5W 900 MG/50 ML*** 900 MG/50 ML BAG IV SCH; Lactated Ringers 1,000 ML IV ONE; Levofloxacin 500MG/100ML D5W 500 MG/100 ML BAG IV ONE; Sensorcaine 0.25% 10 ML ONE
[2017-01-22] MEDS ORDERED: Zofran 4 MG/2 ML VIAL IV ONE (10:17)
[2017-01-22] MEDS ORDERED: Zemuron 100 MG/10 ML IJ ONE (10:17)
[2017-01-22] MEDS ORDERED: SUBLIMAZE 100 MCG/2 ML IV ONE (10:17)
[2017-01-22] MEDS ORDERED: Decadron 4 MG INJ IV ONE (10:17)
[2017-01-22] MEDS ORDERED: Quelicin Fliptop 200 MG/10 ML IJ ONE (10:17)
[2017-01-22] MEDS ORDERED: DIPRIVAN 200 MG/20 ML IV ONE (10:17)
[2017-01-22] MEDS ORDERED: TORAdol 30 mg Injection IJ ONE (10:17)
[2017-01-22] MEDS ORDERED: BRIDION 200MG/2ML IV ONE (10:17)
[2017-01-22] MEDS: Lactated Ringers 1,000 ML IV SCH ×2 (10:23→14:47)
[2017-01-22] MEDS ORDERED: Zofran 4 MG/2 ML VIAL ONE ×2 (13:53→14:33)
[2017-01-22] MEDS ORDERED: Zofran 4 MG/2 ML VIAL IV PRN ×2 (14:31→16:57)
[2017-01-22] MEDS ORDERED: Lactated Ringers 1,000 ML IV ONE (14:44)
--- NOTE | 2017-01-22 15:50 | OP ---
SURGERY DATE/TIME: 01/22/2017 1205 PREOPERATIVE DIAGNOSIS: Symptomatic cholelithiasis, chronic cholecystitis. History of prior right colectomy. POSTOPERATIVE DIAGNOSIS: Symptomatic cholelithiasis, chronic cholecystitis. History of prior right colectomy. Intra-abdominal adhesions requiring additional ports and LigaSure device. PROCEDURES: 1) Laparoscopic lysis of adhesions requiring additional port and additional time. 2) Laparoscopic cholecystectomy. SURGEON: Dr. Dell Cool. ANESTHESIA: General. ESTIMATED BLOOD LOSS: Minimal. INDICATIONS: As noted above. Risks and benefits explained in detail but not limited to and consent obtained. DESCRIPTION OF PROCEDURE AND FINDINGS: The patient was taken to the OR. She had prior right colectomy of the colon in the past. General anesthesia was induced. Abdomen prepped and draped in the usual sterile fashion. After official time out and no disagreement with planned procedure, a transverse incision made at the lateral edge of a prior transverse incision. Fascia grasped and pulled upwards. Veress needle inserted and tested with saline. Pneumoperitoneum accomplished insufflating opening pressure of 0-15. A 5 mm bladeless port and camera were inserted without difficulty and later switched to 10/11 port. Extensive intra-abdominal adhesions across the transverse abdomen this required placing additional port in the left upper quadrant as well as two right upper quadrant ports and a 5 mm epigastric port. It required taking down these adhesions with a combination of LigaSure device staying directly along the anterior abdominal wall well away from the viscera underneath. It took some time but was carefully accomplished and again required placing additional port to allow for access, this allowed the right upper quadrant area to be visualized. The gallbladder is grasped and retracted up over the edge of the liver. The adhesions were taken down off of the gallbladder with a combination of gentle blunt dissection as well as vascular omental adhesions staying well away from the viscera taken down with LigaSure device as necessary. The gallbladder is slowly and carefully dissected posterior, lateral to anterior fashion. Cystic duct and infundibular junction slowly and carefully well skeletonized until critical view was obtained both anteriorly and posteriorly. Once this was accomplished cystic duct was then clipped x3 and divided in the usual fashion. Cystic artery clipped x2 on the side distal part divided by LigaSure device. The gallbladder is slowly and carefully dissected free from its dense almost concrete attachments to the liver bed clipping additional oozing side branch off the cystic artery as necessary. Just prior to releasing from final attachment to anterior edge of the liver the liver bed re-inspected. Clips noted in place cystic duct and cystic artery stumps. There were no signs of any active bleeding or bile leakage. It was felt there was no benefit in drain placement. The gallbladder was released from final attachments to the anterior edge of the liver, placed in Pleatman sac, pulled up and out the umbilical port and passed off. The port was replaced. Copious amount of irrigation accomplished lateral to the liver and subhepatic space irrigating until clear. Laparoscopic lysis of adhesions carefully inspected. There were no signs of any active bleeding. No signs of any issues of any viscera, stayed well away from viscera. Again the 10/11 port was closed with puncture closure device and #1 Vicryl under direct vision with the camera. Pneumoperitoneum decompressed. The wound was irrigated out. Skin incision closed with 4-0 Vicryl. Steri-Strips and sterile dressing applied. 0.25% Marcaine local injected along the skin incision fascial defect. The patient tolerated the procedure well. There were no immediate complications. Findings discussed with the family out in the waiting area. She was transferred to the recovery room in stable condition.
[2017-01-22 16:35] VITALS: O2SAT 95
[2017-01-22] MEDS ORDERED: MORPHINE SULFATE 2 MG INJ IV PRN (16:52)
[2017-01-22] MEDS ORDERED: NORCO 5/325 MG PO PRN (16:56)
[2017-01-22] MEDS ORDERED: Lactated Ringers 1,000 ML IV SCH (17:00)
[2017-01-22 17:29] VITALS: BP 180/80; PULSE 82
[2017-01-22] MEDS ORDERED: Klor Con 10 MEQ PO SCH (22:00)
[2017-01-22] MEDS ORDERED: Cardizem CD 180 MG PO SCH (22:00)
[2017-01-23] MEDS ORDERED: SYNTHROID 75 MCG PO SCH (10:00)
[2017-01-23] MEDS ORDERED: THERAGRAN MULTIVITAMIN PO SCH (10:00)
[2017-01-23] MEDS ORDERED: Protonix 40MG Tablet PO SCH (10:00)
[2017-01-23] MEDS ORDERED: IRON PO SCH (10:00)
[2017-01-23] MEDS ORDERED: MV MN PO SCH (10:00)
[2017-01-23] MEDS ORDERED: HERB PO SCH (10:00)
[2017-01-23] MEDS ORDERED: POTASSIUM CHLORIDE 10 MEQ PO SCH (10:00)
[2017-01-23] MEDS ORDERED: Lasix 40 MG PO SCH (10:00)
[2017-01-23] MEDS ORDERED: FOLIC ACID PO SCH (10:00)
[2017-01-23] MEDS ORDERED: MULTIVITAMIN WITH MINERALS PO SCH (10:00)
[2017-01-23] MEDS ORDERED: FISH OIL 1,000 MG CAPSULE PO SCH (22:00)
== END 2017-01-22 21:10 | disposition home or self-care (01) ==
LOC: SDC 10:16 → MED SURG 16:20 → SDC 21:10
PROVIDERS: ATTEND Surgery
PROC: 0FT44ZZ Resection of Gallbladder, Percutaneous Endoscopic Approach (ICD-10-PCS; principal; 2017-01-22)
PROC: 0DNW4ZZ Release Peritoneum, Percutaneous Endoscopic Approach (ICD-10-PCS; 2017-01-22)
DX: K80.10 Calculus of gallbladder with chronic cholecystitis without obstruction (principal); Z90.49 Acquired absence of other specified parts of digestive tract; K66.0 Peritoneal adhesions (postprocedural) (postinfection); Z79.899 Other long term (current) drug therapy
CPT/HCPCS: 00790; 82962; 87086; 99100; J0330; J1100; J1885; J1956; J2405; J2704; J3010; A9270-GY